=== PATIENT | female | born 1960 | race Caucasian/White ===

== ENCOUNTER 2024-01-22 13:06 | Outpatient (CLI) | payer MEDICAID, SELFPAY ==
[2024-01-22 13:12] LABS: Anion Gap 12.4 mmol/L (3-11); BUN 39 mg/dL (7-18); CO2 23.6 mmol/L (21.0-32.0); CREATININE 2.2 mg/dL (0.55-1.02); Calcium 9.5 mg/dL (8.5-10.1); Chloride 97 mmol/L (98-107); Estimated GFR 24.27 (mL/min/1.73m2); Glucose 343 mg/dL (74-106); Potassium 4.3 mmol/L (3.5-5.1); Sodium 133 mmol/L (136-145)
== END 2024-01-22 13:07 | disposition home or self-care (01) ==
LOC: LBO 13:07
PROVIDERS: PCP Nurse Practitioner Primary Care; Visit Provider Nurse Practitioner
DX: N17.9 Acute kidney failure, unspecified (principal)
CPT/HCPCS: 36415; 80048

== ENCOUNTER 2024-01-25 14:42 | Outpatient (CLI) | payer MEDICAID, SELFPAY ==
[2024-01-25 13:22] LABS: Anion Gap 13.2 mmol/L (3-11); BUN 36 mg/dL (7-18); CO2 25.8 mmol/L (21.0-32.0); Calcium 10.3 mg/dL (8.5-10.1); Chloride 97 mmol/L (98-107); Estimated GFR 27.21 (mL/min/1.73m2); Glucose 281 mg/dL (74-106); Potassium 4.1 mmol/L (3.5-5.1); Sodium 136 mmol/L (136-145)
== END 2024-01-25 14:43 | disposition home or self-care (01) ==
LOC: LBO 14:43
PROVIDERS: PCP Nurse Practitioner Primary Care; Visit Provider Nurse Practitioner
DX: N17.9 Acute kidney failure, unspecified (principal)
CPT/HCPCS: 36415; 80048

== ENCOUNTER 2024-06-06 17:51 | Outpatient (REF) | payer MEDICARE, MEDICAID, SELFPAY ==
[2024-06-06 14:36] LABS: Bilirubin Negative (Negative); Blood Small (Negative); Clarity Sl Cloudy (Clear); Glucose Negative (Negative); Ketones Negative (Negative); Leukocyte Esterase Large (Negative); Nitrite Negative (Negative); Specific Gravity 1.015 (1.005-1.025); Urobilinogen 0.2 mg/dL (Up to 0.2); pH 6.5 (5-8)
[2024-06-06 14:44] LABS: WBC >50 HPF (0-5)
[2024-06-06 14:45] LABS: C & S Indicated? Yes
== END 2024-06-06 17:52 | disposition home or self-care (01) ==
LOC: LBN 17:51
PROVIDERS: PCP Nurse Practitioner Primary Care; Visit Provider Legal Medicine
DX: R30.0 Dysuria (principal)
CPT/HCPCS: 87077; 81003; 81015; 87086; 87186

== ENCOUNTER 2024-09-05 16:08 | Outpatient (CLI) | payer MEDICARE, MEDICAID, SELFPAY ==
[2024-09-05 17:47] LABS: Anion Gap 12.5 mmol/L (3-11); BUN 21 mg/dL (7-18); CO2 23.5 mmol/L (21.0-32.0); CREATININE 1.5 mg/dL (0.55-1.02); Calcium 9.2 mg/dL (8.5-10.1); Chloride 104 mmol/L (98-107); Estimated GFR 38.43 (mL/min/1.73m2); Glucose 167 mg/dL (74-106); Sodium 140 mmol/L (136-145)
== END 2024-09-05 16:09 | disposition home or self-care (01) ==
LOC: LBO 16:09
PROVIDERS: PCP Nurse Practitioner Primary Care; Visit Provider Nurse Practitioner
DX: N17.9 Acute kidney failure, unspecified (principal)
CPT/HCPCS: 36415; 80048

== ENCOUNTER 2025-04-06 15:08 | Outpatient (CLI) | payer MEDICARE, MEDICAID, SELFPAY ==
[2025-04-06 15:09] LABS: Abs Immature Grans 0.02 10^3/uL (0.0-0.06); Absolute Basophil Count 0.03 10^3/uL (0.0-0.2); Absolute Lymphocyte Count 1.31 10^3/uL (1.2-3.4); Absolute Monocyte Count 0.71 10^3/uL (0.1-0.8); Absolute Neutrophil Count 4.92 10^3/uL (1.2-6.7); Basophils % 0.4 %; Eosinophils % 1.4 %; HCT 35.5 % (36.0-46.0); HGB 11.3 g/dL (11.2-15.7); Immature Grans % 0.3 %; Lymphocytes % 18.5 %; MCH 27.2 pg (27.0-33.0); MCHC 31.8 % (32.0-36.0); MCV 85 fL (80-95); MPV 11.3 fL (8.0-11.0); Neutrophils % 69.4 %; Platelet Count 222 10^3/uL (130-400); RBC 4.16 10^6/uL (3.93-5.22); RDW 13.3 % (11.7-14.6); RDW-SD 41.7 fL; WBC 7.09 10^3/uL (4.4-10.8)
[2025-04-06 16:38] LABS: ALT 25 U/L (14-59); AST 20 U/L (15-37); Alkaline Phosphatase 120 U/L (46-116); Anion Gap 8.2 mmol/L (3-11); BUN 21 mg/dL (7-18); Bilirubin, Total 0.2 mg/dL (0.2-1.0); CO2 25.8 mmol/L (21.0-32.0); CREATININE 1.4 mg/dL (0.55-1.02); Calcium 9.6 mg/dL (8.5-10.1); Chloride 101 mmol/L (98-107); Estimated GFR 41.49 (mL/min/1.73m2); Glucose 137 mg/dL (74-106); Sodium 135 mmol/L (136-145); Total Protein 8.1 g/dL (6.4-8.2)
[2025-04-07 14:57] LABS: Hemoglobin A1C 7.5 % (<5.7)
== END 2025-04-06 15:09 | disposition home or self-care (01) ==
LOC: LBO 15:08
PROVIDERS: PCP Nurse Practitioner Primary Care; Visit Provider Legal Medicine
DX: N18.9 Chronic kidney disease, unspecified (principal); E11.8 Type 2 diabetes mellitus with unspecified complications
CPT/HCPCS: 36415; 80053; 81003; 83036; 85025

== ENCOUNTER 2025-04-08 16:57 | Outpatient (REF) | payer MEDICARE, MEDICAID, SELFPAY ==
[2025-04-08 17:51] LABS: Bilirubin Negative (Negative); Blood Small (Negative); Clarity Sl Cloudy (Clear); Glucose Negative (Negative); Ketones Negative (Negative); Leukocyte Esterase Moderate (Negative); Nitrite Positive (Negative); Urobilinogen 0.2 mg/dL (Up to 0.2); pH 6.5 (5-8)
[2025-04-08 17:58] LABS: Bacteria Packed HPF (Negative); C & S Indicated? Yes; WBC >50 HPF (0-5)
== END 2025-04-08 16:58 | disposition home or self-care (01) ==
LOC: LBN 16:57
PROVIDERS: PCP Nurse Practitioner Primary Care; Visit Provider Legal Medicine
DX: N39.0 Urinary tract infection, site not specified (principal)
CPT/HCPCS: 87077; 81003; 81015; 87086; 87186

== ENCOUNTER 2025-04-28 06:29 | Observation (INO) | payer MEDICARE, MEDICAID, SELFPAY ==
[2025-04-28] VITALS (77 sets, daily range): BP systolic 100–193; BP diastolic 60–141; PULSE 83–149; RESP 16–61; TEMP 36.2–37.7; O2SAT 92–98; BMI 21.5
--- NOTE | 2025-04-28 06:36 | W.ED.GENAD ---
Discharge Plan Discharge Details Chief Complaint: Nk/Back Pain Clinical Impression: Acute right flank pain Primary Care Provider: KARON ERAZO ED Provider: Lars Leone Home Meds and New Rx's Prescriptions: No Action aspirin 81 mg tablet,delayed release (DR/EC) 81 mg PO DAILY levothyroxine 100 mcg capsule 100 mcg PO DAILY naproxen 500 mg tablet 500 mg PO BID omeprazole 40 mg capsule,delayed release(DR/EC) 40 mg PO DAILY cyclosporine [Restasis] 0.05 % dropperette 1 drp ophthalmic (eye) Q12H rosuvastatin 40 mg tablet 40 mg PO DAILY sumatriptan succinate 50 mg tablet See Rx Instructions PO .COMPLEX Rx Instructions: take 1 tab at onset of headache; if no relief may repeat 1 tab after at least 2 hrs; max = 4 tabs/24 hr PO Xiidra 5 % dropperette 1 drp ophthalmic (eye) BID Rx Instructions: administer approximately 12 hours apart zolmitriptan 2.5 mg tablet See Rx Instructions PO .COMPLEX Rx Instructions: take 1 tab at onset of headache; if no relief may repeat 1 tab after at least 2 hrs; max = 4 tabs/24 hr PO multivitamin Tablet 1 tab PO DAILY Ozempic 0.25 mg or 0.5 mg (2 mg/3 mL) pen injector 0.25 mg subcut QWEEK Rx Instructions: for 4 weeks levothyroxine 75 mcg capsule 75 mcg PO DAILY Januvia 25 mg tablet 25 mg PO DAILY insulin degludec [Tresiba FlexTouch U-100] 100 unit/mL (3 mL) insulin pen 10 unit subcut DAILY pregabalin 75 mg capsule See Rx Instructions PO DAILY Rx Instructions: 2 tabs q am, 1 tab qhs orally daily; ferrous sulfate [FeroSul] 325 mg (65 mg iron) tablet 325 mg PO DAILY vitamin B complex Capsule 1 cap PO DAILY cholecalciferol (vitamin D3) 25 mcg (1,000 unit) capsule 25 mcg PO DAILY HPI General Date/Time Provider Initiated Documentation: 04/28/25 06:29. HPI Narrative: 64-year-old female who is not normally seen here, with a past medical history of diabetes mellitus, previous C. difficile colitis, previous renal failure with CRRT in the past, hypothyroidism, high cholesterol, who presents today for evaluation of right flank pain. Flank pain began at 4 AM, severe and sharp in nature. Radiates towards the groin. She has noticed some mild to moderate hematuria associated with this. She denies fever. She did have a single episode of vomiting. She denies any chest pain or shortness of breath. No falls or trauma. No other complaints at this time. Pain is unremitting. Related Data Home Medications ?Medication ?Instructions ?Recorded ?Confirmed aspirin 81 mg tablet,delayed 81 mg PO DAILY 01/02/23 release cyclosporine 0.05 % eye drops in a 1 drp ophthalmic (eye) Q12H 01/02/23 dropperette (Restasis) levothyroxine 100 mcg capsule 100 mcg PO DAILY 01/02/23 lifitegrast 5 % eye drops in a 1 drp ophthalmic (eye) BID 01/02/23 dropperette (Xiidra) naproxen 500 mg tablet 500 mg PO BID 01/02/23 omeprazole 40 mg capsule,delayed 40 mg PO DAILY 01/02/23 release rosuvastatin 40 mg tablet 40 mg PO DAILY 01/02/23 sumatriptan succinate 50 mg tablet See Rx Instructions PO .COMPLEX 01/02/23 zolmitriptan 2.5 mg tablet See Rx Instructions PO .COMPLEX 01/02/23 cholecalciferol (vitamin D3) 25 25 mcg PO DAILY 08/18/24 mcg (1,000 unit) capsule ferrous sulfate 325 mg (65 mg 325 mg PO DAILY 08/18/24 iron) tablet (FeroSul) insulin degludec 100 unit/mL (3 10 unit subcut DAILY 08/18/24 mL) subcutaneous pen (Tresiba FlexTouch U-100 insulin) levothyroxine 75 mcg capsule 75 mcg PO DAILY 08/18/24 multivitamin 1 tab PO DAILY 08/18/24 pregabalin 75 mg capsule See Rx Instructions PO DAILY 08/18/24 semaglutide 0.25 mg or 0.5 mg (2 0.25 mg subcut QWEEK 08/18/24 mg/3 mL) subcutaneous pen injector (Ozempic) sitagliptin phosphate 25 mg tablet 25 mg PO DAILY 08/18/24 (Januvia) vitamin B complex 1 cap PO DAILY 08/18/24 Allergies Allergy/AdvReac Type Severity Reaction Status Date / Time acetaminophen (From Percocet) Allergy Unknown Verified 04/28/25 06:40 nystatin Allergy Unknown Verified 04/28/25 06:40 oxycodone (From Percocet) Allergy Unknown Verified 04/28/25 06:40 Sulfa (Sulfonamide Allergy Unknown Verified 04/28/25 06:40 Antibiotics) Exam Narrative Exam Narrative: 1.Const: Well-nourished, Well-developed, appearing stated age 2.Eyes: PERRL, no conjunctival injection, and symmetrical lids. 3.ENT: Atraumatic external nose and ears. Moist MM. Neck: Symmetric, trachea midline, No thyromegaly. 4.CVS: +S1/S2, Peripheral pulses 2+ and equal in all extremities. Brisk capillary refill in all extremities. 5.RESP: Unlabored respiratory effort. Clear to auscultation bilaterally. No wheezes rales or rhonchi 6.GI: Soft, mildly distended, moderate right CVA tenderness. Minimal reproducible tenderness on palpation of the right abdomen. No guarding or rebound. 7.MSK: Normocephalic/Atraumatic, Extremities w/o deformity or ttp No cyanosis or clubbing, Normal movement of all extremities 8.Skin: Warm, Dry. No rashes or lesions. 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 Sensation grossly intact, no focal neurologic deficits. 10.Psych: (AAO) x3. Appropriate mood and affect Medical Decision Making 64-year-old female who is not normally seen here, with a past medical history of diabetes mellitus, previous C. difficile colitis, previous renal failure with CRRT in the past, hypothyroidism, high cholesterol, who presents today for evaluation of right flank pain. Flank pain began at 4 AM, severe and sharp in nature. Radiates towards the groin. She has noticed some mild to moderate hematuria associated with this. She denies fever. She did have a single episode of vomiting. She denies any chest pain or shortness of breath. No falls or trauma. No other complaints at this time. Pain is unremitting. Exam demonstrates right flank/CVA tenderness, mildly distended abdomen. No severe abdominal tenderness on palpation. Differential includes obstruction, kidney stone, pyelonephritis or less likely appendicitis. Will get CT imaging, treat the patient's pain with morphine, gently rehydrate, monitor closely and reassess. Patient will be signed out to my colleague for follow-up on labs and imaging. I did offer morphine for the patient's pain, she refused, she does not want fentanyl or Dilaudid. She only wants pregabalin, or Vicodin. I discussed risks and benefits of utilizing his medications and she refuses any other additional meds. Quality:SDOH Health Related Social Needs: No Data to Display PFSH All Active Problems (Updated 04/28/25 @ 06:49 by Lars Leone DO) Acute right flank pain (Acute) Osteopenia (Acute) Medical History (Updated 04/28/25 @ 06:49 by Lars Leone DO) Hypothyroidism Hypertension Hyperlipidemia Palpitations Tobacco use Hx of chest pain Neuropathy Spinal stenosis of lumbar region Skin lesion Pain in limb History of neck pain Dysuria Anxiety Rupture of appendix Abnormal uterine bleeding Disorder of tendon of biceps Chronic pain syndrome Graves disease Hand paresthesia Intracranial meningioma Myalgia Genital prolapse Pleomorphic adenoma of parotid gland GERD (gastroesophageal reflux disease) Sciatica Abdominal pain in female Neuralgia Hx of visual disturbance Migraine History of depression Alcohol abuse Acute hip pain, bilateral Otalgia of left ear Osteoarthritis 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
[2025-04-28 07:10] LABS: Abs Immature Grans 0.06 10^3/uL (0.0-0.06); Absolute Eosinophil Count 0.06 10^3/uL (0.0-0.7); Basophils % 0.5 %; Eosinophils % 0.4 %; HCT 34.5 % (36.0-46.0); HGB 10.3 g/dL (11.2-15.7); Immature Grans % 0.4 %; Lymphocytes % 7.5 %; MCH 25.8 pg (27.0-33.0); MCHC 29.9 % (32.0-36.0); MCV 86 fL (80-95); MPV 11.3 fL (8.0-11.0); Monocytes % 5.9 %; Neutrophils % 85.3 %; Platelet Count 230 10^3/uL (130-400); RDW 13.3 % (11.7-14.6); RDW-SD 42.2 fL; WBC 15.55 10^3/uL (4.4-10.8)
[2025-04-28 07:11] LABS: Absolute Basophil Count 0.08 10^3/uL (0.0-0.2); Absolute Lymphocyte Count 1.17 10^3/uL (1.2-3.4); Absolute Monocyte Count 0.92 10^3/uL (0.1-0.8); Absolute Neutrophil Count 13.26 10^3/uL (1.2-6.7)
[2025-04-28] MEDS: Normal Saline 500 ML IV (07:21)
[2025-04-28 07:25] LABS: ALT 28 U/L (14-59); AST 18 U/L (15-37); Albumin 3.7 g/dL (3.4-5.0); Alkaline Phosphatase 101 U/L (46-116); Anion Gap 10.6 mmol/L (3-11); BUN 20 mg/dL (7-18); Bilirubin, Total 0.2 mg/dL (0.2-1.0); CO2 25.4 mmol/L (21.0-32.0); CREATININE 1.4 mg/dL (0.55-1.02); Calcium 8.8 mg/dL (8.5-10.1); Chloride 106 mmol/L (98-107); Estimated GFR 41.49 (mL/min/1.73m2); Glucose 221 mg/dL (74-106); Sodium 142 mmol/L (136-145); Total Protein 7.3 g/dL (6.4-8.2)
[2025-04-28] MEDS: Pregabalin 100 MG CAP PO (07:48)
--- NOTE | 2025-04-28 07:55 | ED.PROG_ITS ---
Date of service: 04/28/25 Time of Service: 07:55 Medical Decision Making Care assumed from off going provider. Patient is a 64-year-old female that presented with acute onset flank pain and hematuria. The patient has a prior history of renal disease and was previously on CRRT without dialysis. She is no longer on this. Workup thus far has been reviewed. Elevated white blood cell count of 15 noted. Mild anemia appreciated. Renal function at 1.4 which does seem to be consistent with prior noted values. Mild hyperglycemia without evidence of DKA. Unclear etiology of the leukocytosis. At the time of signout, patient is pending urinalysis and CT scan of her abdomen for further disposition planning. CT scan has not been able to be obtained secondary to the patient's unwillingness to lay still for the imaging. She has been offered multiple rounds of medication however she refuses them. She is now endorsing some nausea. A dose of droperidol has been ordered. CT imaging has been discussed with radiologist and there is concern for right hydronephrosis and hydroureter. There is a 4 mm stone just proximal to the UVJ. The patient also has an infected urinalysis. Culture has been sent. Blood culture has been sent. She has been resuscitated with some IV fluids and a dose of Rocephin has been given. Given her leukocytosis in addition to these current findings, the patient was discussed with urology who does feel that she would benefit from stenting. Anesthesia has evaluated her and find that she is not appropriate candidate for surgical management here. Discussed with the hospitalist to admit the patient to their service. Quality:SDW[place] Health Related Social Needs: No Data to Display Discharge Plan Disposition Patient Disposition: Admit to [facility] Condition: Fair Discharge Details Chief Complaint: Nk/Back Pain Clinical Impression: Acute right flank pain, Leukocytosis, Calculus, ureteral, Acute UTI, Acute pyelonephritis Primary Care Provider: Nellie Lorenzo ED Provider: Kristen Ralph Home Meds and New Rx's Prescriptions: No Action aspirin 81 mg tablet,delayed release (DR/EC) 81 mg PO DAILY levothyroxine 100 mcg capsule 100 mcg PO DAILY naproxen 500 mg tablet 500 mg PO BID omeprazole 40 mg capsule,delayed release(DR/EC) 40 mg PO DAILY cyclosporine [Restasis] 0.05 % dropperette 1 drp ophthalmic (eye) Q12H rosuvastatin 40 mg tablet 40 mg PO DAILY sumatriptan succinate 50 mg tablet See Rx Instructions PO .COMPLEX Rx Instructions: take 1 tab at onset of headache; if no relief may repeat 1 tab after at least 2 hrs; max = 4 tabs/24 hr PO Xiidra 5 % dropperette 1 drp ophthalmic (eye) BID Rx Instructions: administer approximately 12 hours apart zolmitriptan 2.5 mg tablet See Rx Instructions PO .COMPLEX Rx Instructions: take 1 tab at onset of headache; if no relief may repeat 1 tab after at least 2 hrs; max = 4 tabs/24 hr PO multivitamin Tablet 1 tab PO DAILY Ozempic 0.25 mg or 0.5 mg (2 mg/3 mL) pen injector 0.25 mg subcut QWEEK Rx Instructions: for 4 weeks levothyroxine 75 mcg capsule 75 mcg PO DAILY Januvia 25 mg tablet 25 mg PO DAILY insulin degludec [Tresiba FlexTouch U-100] 100 unit/mL (3 mL) insulin pen 10 unit subcut DAILY pregabalin 75 mg capsule See Rx Instructions PO DAILY Rx Instructions: 2 tabs q am, 1 tab qhs orally daily; ferrous sulfate [FeroSul] 325 mg (65 mg iron) tablet 325 mg PO DAILY vitamin B complex Capsule 1 cap PO DAILY cholecalciferol (vitamin D3) 25 mcg (1,000 unit) capsule 25 mcg PO DAILY cephalexin 250 mg capsule 250 mg PO DAILY Patient Comments: Take 1 capsue by mouth Daily for 90 days ( start after three times a day cephalexin script is complete )
[2025-04-28] MEDS: Droperidol 5 MG/2 ML VIAL 2.5 MG IVP (07:59)
[2025-04-28] MEDS: Normal Saline 50 ML (08:02)
--- NOTE | 2025-04-28 08:30 | DI.CT_ITS ---
Exam(s) CT ABDOMEN PELVIS WO EXAM: CT ABDOMEN PELVIS WO CLINICAL HISTORY: severe right flank pain, hx of renal failure. TECHNIQUE: Imaging Protocol: Axial computed tomography images with coronal and sagittal reformatted images were created and reviewed CONTRAST MATERIAL: Intravenous: none Oral: None COMPARISON: No exams were available for comparison FINDINGS: VISUALIZED LUNG BASES: No nodules nor pleural effusions evident. ABDOMEN: There is no ascites. LIVER: There are no obvious focal hepatic lesions evident of this noninfused study. GALLBLADDER/BILIARY: No obvious gallbladder pathology. CBD is not dilated. PANCREAS: No evidence of pancreatic mass nor dilatation of the pancreatic duct. SPLEEN: Spleen is not enlarged. No obvious intrasplenic lesions. ADRENALS: There are no significant adrenal masses. KIDNEYS:Left kidney unremarkable. However, there is right-sided hydronephrosis and hydroureter and p rominent right-sided perinephric streaking/decompression into the perinephric space. The right urete r is dilated down to the level of the pelvis. There appears to be a small 3-4 mm calculus in the low er right ureter a few cm above the ureterovesical junction. There are no radiopaque calculi seen in the urinary bladder.. ABDOMINAL AORTA: Calcified but not enlarged. LYMPH NODES: There is no retroperitoneal nor paraaortic adenopathy. ABDOMINAL WALL: No evidence of significant anterior abdominal wall nor inguinal hernia. GI: There is no evidence of bowel obstruction, free air, nor abscess. PELVIS: LYMPH NODES: There is no intrapelvic nor inguinal adenopathy. GI: No evidence of appendicitis.No evidence of sigmoid diverticulitis. URINARY BLADDER: Cystocele is noted. No obvious masses nor radiopaque calculi in the urinary bladder lumen REPRODUCTIVE: Multiple large calcified uterine fibroids are noted. No free fluid in the pelvis. OSSEOUS: No significant osseous lesions. No fractures. Advanced chronic degenerative disc space narrowing at L4-5 level and mild anterolisthe sis of L4 upon L5 due to facet arthropathy. There are no pars defects. IMPRESSION: 1. The main finding here is right-sided hydronephrosis and hydroureter which appears to be related to a probable small calculus in the lower right ureter measuring 4 mm. There is also the possibly that this calcification is just a phlebolith and that there is another etiology for the obstruction in th e ureter and dilatation of the right collecting system above this level as well as unilateral right-s ided perinephric streaking. 2. There are no radiopaque calculi seen with in the kidneys. 3. No radiopaque calculi seen within the urinary bladder lumen. Mild cystocele of bladder noted 4. Multiple large calcified uterine fibroids. Report called by myself to ER physician 04/28/2025 at 9 a.m. RADIATION DOSE DELIVERED: 451.21mGy.cm Total DLP DATA REPOSITORY: All CT scans at this facility are submitted to the National Radiology Data Registry (NRDR) Dose Index Registry (DIR) with the [employer] (ACR). RADIATION OPTIMIZATION: All CT scans at this facility use at least one of these dose optimization te chniques: automated exposure control; mA and/or kV adjustment per patient size (includes targeted exa ms where dose is matched to clinical indication); or iterative reconstruction.
[2025-04-28 10:14] LABS: Bilirubin Negative (Negative); Blood Large (Negative); Clarity Clear (Clear); Glucose Negative (Negative); Ketones Negative (Negative); Leukocyte Esterase Large (Negative); Nitrite Negative (Negative); Specific Gravity 1.015 (1.005-1.025); Urobilinogen 0.2 mg/dL (Up to 0.2)
[2025-04-28] MEDS: Normal Saline 1,000 ML 1000 ML IV (10:20)
[2025-04-28] MEDS: cefTRIAXone 1 GM/50 ML BAG IVPB (10:20)
[2025-04-28 10:23] LABS: Bacteria Many HPF (Negative); C & S Indicated? Yes; Casts 0-2 Hyaline LPF (Negative); Crystals Negative HPF (Negative); Epithelial Cells Rare HPF (Negative); Mucus Negative (Negative); Other Cells Few Renal (Negative); RBC 20-50 HPF (0-2); WBC >50 HPF (0-5)
[2025-04-28 11:09] LABS: Lactate 2.2 mmol/L (<or=2.0)
--- NOTE | 2025-04-28 12:23 | ANES.PREOP_ITS ---
General Info Date of Service Date Performed: 04/28/25 Height: 4 ft 10 in Weight: 46.72 kg Body Mass Index (BMI): 21.5 Surgical Procedure: Operation Date: 04/28/25 12:40 Proposed Procedure Side Surgeon p Cystoscopy/Retrograde/ Stent Placement Right Sergo Duron MD Meds Allergies and Home Medications Allergies Allergy/AdvReac Type Severity Reaction Status Date / Time acetaminophen (From Percocet) Allergy Unknown Verified 04/28/25 06:40 nystatin Allergy Unknown Verified 04/28/25 06:40 oxycodone (From Percocet) Allergy Unknown Verified 04/28/25 06:40 Sulfa (Sulfonamide Allergy Unknown Verified 04/28/25 06:40 Antibiotics) Home Medication ?Medication ?Instructions ?Recorded aspirin 81 mg tablet,delayed 81 mg PO DAILY 01/02/23 release cyclosporine 0.05 % eye drops in a 1 drp ophthalmic (eye) Q12H 01/02/23 dropperette (Restasis) levothyroxine 100 mcg capsule 100 mcg PO DAILY 01/02/23 lifitegrast 5 % eye drops in a 1 drp ophthalmic (eye) BID 01/02/23 dropperette (Xiidra) naproxen 500 mg tablet 500 mg PO BID 01/02/23 omeprazole 40 mg capsule,delayed 40 mg PO DAILY 01/02/23 release rosuvastatin 40 mg tablet 40 mg PO DAILY 01/02/23 sumatriptan succinate 50 mg tablet See Rx Instructions PO .COMPLEX 01/02/23 zolmitriptan 2.5 mg tablet See Rx Instructions PO .COMPLEX 01/02/23 cholecalciferol (vitamin D3) 25 25 mcg PO DAILY 08/18/24 mcg (1,000 unit) capsule ferrous sulfate 325 mg (65 mg 325 mg PO DAILY 08/18/24 iron) tablet (FeroSul) insulin degludec 100 unit/mL (3 10 unit subcut DAILY 08/18/24 mL) subcutaneous pen (Tresiba FlexTouch U-100 insulin) levothyroxine 75 mcg capsule 75 mcg PO DAILY 08/18/24 multivitamin 1 tab PO DAILY 08/18/24 pregabalin 75 mg capsule See Rx Instructions PO DAILY 08/18/24 semaglutide 0.25 mg or 0.5 mg (2 0.25 mg subcut QWEEK 08/18/24 mg/3 mL) subcutaneous pen injector (OzempMembersuite) sitagliptin phosphate 25 mg tablet 25 mg PO DAILY 08/18/24 (Januvia) vitamin B complex 1 cap PO DAILY 08/18/24 cephalexin 250 mg capsule 250 mg PO DAILY 04/28/25 PFS Active Problems Active Problems: Problem Status Onset Code Acute pyelonephritis Acute N10 Acute UTI Acute N39.0 Calculus, ureteral Acute N20.1 Leukocytosis Acute D72.829 Acute right flank pain Acute R10.9 Osteopenia Acute M85.80 Medical History Medical History (Updated 04/28/25 @ 11:07 by Kristen Ralph MD) Hypothyroidism Hypertension Hyperlipidemia Palpitations Tobacco use Hx of chest pain Neuropathy Spinal stenosis of lumbar region Skin lesion Pain in limb History of neck pain Dysuria Anxiety Rupture of appendix Abnormal uterine bleeding Disorder of tendon of biceps Chronic pain syndrome Graves disease Hand paresthesia Intracranial meningioma Myalgia Genital prolapse Pleomorphic adenoma of parotid gland GERD (gastroesophageal reflux disease) Sciatica Abdominal pain in female Neuralgia Hx of visual disturbance Migraine History of depression Alcohol abuse Acute hip pain, bilateral Otalgia of left ear Osteoarthritis 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 Type 2 diabetes mellitus Tobacco Smoking/Tobacco Use Status: Current every day Alcohol Alcohol Intake: former Substance Use Substance use: Never Vital Signs and Lab Results Vital Signs Most Recent Vital Signs in EMR: Most Recent Vital Signs Pulse Resp BP Pulse Ox 110 H 30 H 170/86 H 94 04/28/25 09:50 04/28/25 10:00 04/28/25 09:46 04/28/25 09:50 Lab Results 04/28/25 07:05 04/28/25 07:05 Blood Type / Crossmatch: 2 No Data to Display Complete Blood Count: 2 White Blood Count 15.55 10^3/uL (4.4-10.8) H 04/28/25 07:05 Red Blood Count 4.00 10^6/uL (3.93-5.22) 04/28/25 07:05 Hemoglobin 10.3 g/dL (11.2-15.7) L 04/28/25 07:05 Hematocrit 34.5 % (36.0-46.0) L 04/28/25 07:05 Platelet Count 230 10^3/uL (130-400) 04/28/25 07:05 Venous Blood Lactate 2.2 mmol/L (<or=2.0) H* 04/28/25 11:00 Complete Metabolic Panel: 2 Sodium 142 mmol/L (136-145) 04/28/25 07:05 Potassium 4.0 mmol/L (3.5-5.1) 04/28/25 07:05 Chloride 106 mmol/L (98-107) 04/28/25 07:05 Carbon Dioxide 25.4 mmol/L (21.0-32.0) 04/28/25 07:05 BUN 20 mg/dL (7-18) H 04/28/25 07:05 Creatinine 1.4 mg/dL (0.55-1.02) H 04/28/25 07:05 Est GFR (CKD-EPI 2020) 41.49 (mL/min/1.73m2) 04/28/25 07:05 Calcium 8.8 mg/dL (8.5-10.1) 04/28/25 07:05 Albumin 3.7 g/dL (3.4-5.0) 04/28/25 07:05 Glucose 221 mg/dL (74-106) H 04/28/25 07:05 Hemoglobin A1c 7.5 % (<5.7) H 04/06/25 15:00 Liver Function Panel: 2 Alanine Aminotransferase (ALT/SGPT) 28 U/L (14-59) 04/28/25 07: 05 Aspartate Amino Transf (AST/SGOT) 18 U/L (15-37) 04/28/25 07:05 Coagulation Panel: 2 No Data to Display Cardiac Panel: 2 No Data to Display Arterial Blood Gas: 2 No Data to Display Venous Blood Gas: 2 No Data to Display Pancreas Panel: 2 No Data to Display Thyroid Panel: 2 No Data to Display Infectious Disease: 2 No Data to Display Blood Cultures: 2 No Data to Display Toxicology Panel: 2 No Data to Display Anesthesia Assessment and Plan Anesthesia History Personal History: No History of Anesthesia Complications Family History: No Family History of Anesthesia Complications Exercise Tolerance Exercise Tolerance: Metabolic Equivalents>4 Pertinent Negatives Pertinent Negatives: No Symptoms of GERD, No Major Cardiovascular Symptoms or Complaints, No Major Pulmonary Symptoms or Complaints and No History of CVA/TIA Cardiac & Pulmonary Exam Cardiac Exam: Normal S1/S2 Heart Sounds Pulmonary Exam: Clear Bilateral Breath Sounds Implantable Cardiac Device Does patient have a Pacemaker or an ICD?: No Airway Exam Known Difficult Airway: No Mallampati Class: 2 Mouth Opening: Normal (> 3cm) Thyromental Distance: Less than 3 cm Neck Range of Motion: Full ROM Neck Circumference: Normal Teeth Condition: Removable Dentures/Plates Upper ASA Classification ASA Score: ASA 3 Emergency Case?: Yes NPO Status NPO Status: NPO Clears >2 hours, Solids >8 hours Anesthesia Plan Resuscitation Status: Full Code Anesthesia Technique: General Anesthesia Airway Planned: Endotracheal Tube Monitors Used: Standard Monitors Preoperative Comments:: Ozempic dose adjusted 2 weeks ago and last dose yesterday.
--- NOTE | 2025-04-28 12:40 | ANES.PREOP_ITS ---
General Info Date of Service Date Performed: 04/28/25 Height: 4 ft 10 in Weight: 46.72 kg Body Mass Index (BMI): 21.5 Surgical Procedure: Operation Date: 04/28/25 12:40 Proposed Procedure Side Surgeon p Cystoscopy/Retrograde/ Stent Placement Right Sergo Duron MD Meds Allergies and Home Medications Allergies Allergy/AdvReac Type Severity Reaction Status Date / Time acetaminophen (From Percocet) Allergy Unknown Verified 04/28/25 06:40 nystatin Allergy Unknown Verified 04/28/25 06:40 oxycodone (From Percocet) Allergy Unknown Verified 04/28/25 06:40 Sulfa (Sulfonamide Allergy Unknown Verified 04/28/25 06:40 Antibiotics) Home Medication ?Medication ?Instructions ?Recorded aspirin 81 mg tablet,delayed 81 mg PO DAILY 01/02/23 release cyclosporine 0.05 % eye drops in a 1 drp ophthalmic (eye) Q12H 01/02/23 dropperette (Restasis) levothyroxine 100 mcg capsule 100 mcg PO DAILY 01/02/23 lifitegrast 5 % eye drops in a 1 drp ophthalmic (eye) BID 01/02/23 dropperette (Xiidra) naproxen 500 mg tablet 500 mg PO BID 01/02/23 omeprazole 40 mg capsule,delayed 40 mg PO DAILY 01/02/23 release rosuvastatin 40 mg tablet 40 mg PO DAILY 01/02/23 sumatriptan succinate 50 mg tablet See Rx Instructions PO .COMPLEX 01/02/23 zolmitriptan 2.5 mg tablet See Rx Instructions PO .COMPLEX 01/02/23 cholecalciferol (vitamin D3) 25 25 mcg PO DAILY 08/18/24 mcg (1,000 unit) capsule ferrous sulfate 325 mg (65 mg 325 mg PO DAILY 08/18/24 iron) tablet (FeroSul) insulin degludec 100 unit/mL (3 10 unit subcut DAILY 08/18/24 mL) subcutaneous pen (Tresiba FlexTouch U-100 insulin) levothyroxine 75 mcg capsule 75 mcg PO DAILY 08/18/24 multivitamin 1 tab PO DAILY 08/18/24 pregabalin 75 mg capsule See Rx Instructions PO DAILY 08/18/24 semaglutide 0.25 mg or 0.5 mg (2 0.25 mg subcut QWEEK 08/18/24 mg/3 mL) subcutaneous pen injector (OzempEversight) sitagliptin phosphate 25 mg tablet 25 mg PO DAILY 08/18/24 (Januvia) vitamin B complex 1 cap PO DAILY 08/18/24 cephalexin 250 mg capsule 250 mg PO DAILY 04/28/25 PFS Active Problems Active Problems: Problem Status Onset Code Acute pyelonephritis Acute N10 Acute UTI Acute N39.0 Calculus, ureteral Acute N20.1 Leukocytosis Acute D72.829 Acute right flank pain Acute R10.9 Osteopenia Acute M85.80 Medical History Medical History (Updated 04/28/25 @ 11:07 by Kristen Ralph MD) Hypothyroidism Hypertension Hyperlipidemia Palpitations Tobacco use Hx of chest pain Neuropathy Spinal stenosis of lumbar region Skin lesion Pain in limb History of neck pain Dysuria Anxiety Rupture of appendix Abnormal uterine bleeding Disorder of tendon of biceps Chronic pain syndrome Graves disease Hand paresthesia Intracranial meningioma Myalgia Genital prolapse Pleomorphic adenoma of parotid gland GERD (gastroesophageal reflux disease) Sciatica Abdominal pain in female Neuralgia Hx of visual disturbance Migraine History of depression Alcohol abuse Acute hip pain, bilateral Otalgia of left ear Osteoarthritis 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 Type 2 diabetes mellitus Tobacco Smoking/Tobacco Use Status: Current every day Alcohol Alcohol Intake: former Substance Use Substance use: Never Vital Signs and Lab Results Vital Signs Most Recent Vital Signs in EMR: Most Recent Vital Signs Pulse Resp BP Pulse Ox 110 H 30 H 170/86 H 94 04/28/25 09:50 04/28/25 10:00 04/28/25 09:46 04/28/25 09:50 Lab Results 04/28/25 07:05 04/28/25 07:05 Blood Type / Crossmatch: 2 No Data to Display Complete Blood Count: 2 White Blood Count 15.55 10^3/uL (4.4-10.8) H 04/28/25 07:05 Red Blood Count 4.00 10^6/uL (3.93-5.22) 04/28/25 07:05 Hemoglobin 10.3 g/dL (11.2-15.7) L 04/28/25 07:05 Hematocrit 34.5 % (36.0-46.0) L 04/28/25 07:05 Platelet Count 230 10^3/uL (130-400) 04/28/25 07:05 Venous Blood Lactate 2.2 mmol/L (<or=2.0) H* 04/28/25 11:00 Complete Metabolic Panel: 2 Sodium 142 mmol/L (136-145) 04/28/25 07:05 Potassium 4.0 mmol/L (3.5-5.1) 04/28/25 07:05 Chloride 106 mmol/L (98-107) 04/28/25 07:05 Carbon Dioxide 25.4 mmol/L (21.0-32.0) 04/28/25 07:05 BUN 20 mg/dL (7-18) H 04/28/25 07:05 Creatinine 1.4 mg/dL (0.55-1.02) H 04/28/25 07:05 Est GFR (CKD-EPI 2020) 41.49 (mL/min/1.73m2) 04/28/25 07:05 Calcium 8.8 mg/dL (8.5-10.1) 04/28/25 07:05 Albumin 3.7 g/dL (3.4-5.0) 04/28/25 07:05 Glucose 221 mg/dL (74-106) H 04/28/25 07:05 Hemoglobin A1c 7.5 % (<5.7) H 04/06/25 15:00 Liver Function Panel: 2 Alanine Aminotransferase (ALT/SGPT) 28 U/L (14-59) 04/28/25 07: 05 Aspartate Amino Transf (AST/SGOT) 18 U/L (15-37) 04/28/25 07:05 Coagulation Panel: 2 No Data to Display Cardiac Panel: 2 No Data to Display Arterial Blood Gas: 2 No Data to Display Venous Blood Gas: 2 No Data to Display Pancreas Panel: 2 No Data to Display Thyroid Panel: 2 No Data to Display Infectious Disease: 2 No Data to Display Blood Cultures: 2 No Data to Display Toxicology Panel: 2 No Data to Display Anesthesia Assessment and Plan Anesthesia History Personal History: No History of Anesthesia Complications Family History: No Family History of Anesthesia Complications Exercise Tolerance Exercise Tolerance: Metabolic Equivalents>4 Cardiac & Pulmonary Exam Cardiac Exam: Normal S1/S2 Heart Sounds Pulmonary Exam: Clear Bilateral Breath Sounds Implantable Cardiac Device Does patient have a Pacemaker or an ICD?: No Airway Exam Known Difficult Airway: No Mallampati Class: 2 Mouth Opening: Normal (> 3cm) Thyromental Distance: Less than 3 cm Neck Range of Motion: Full ROM Neck Circumference: Normal Teeth Condition: Removable Dentures/Plates Upper ASA Classification ASA Score: ASA 2 Emergency Case?: Yes NPO Status NPO Status: Full Stomach Anesthesia Plan Resuscitation Status: Full Code Anesthesia Technique: General Anesthesia Airway Planned: Endotracheal Tube Monitors Used: Standard Monitors
--- NOTE | 2025-04-28 12:57 | UCONE_ITS ---
Date of service: 04/28/25 Time of Service: 12:57 Assessment and Plan Assessment and plan (1) Acute UTI: Status: Acute (2) Calculus, ureteral: Status: Acute Assessment and plan: With concerns for urinary tract infection in the face of a ureteral obstruction, we are recommending an urgent ureteral stent placement. We will not make any attempts to remove her stone today. She will need to complete her antibiotics before we would consider bringing her back to the operating room (can be done as an outpatient) to remove her stent and do ureteroscopy with stone extraction. History of Present Illness History of Present Illness Chief Complaint: Right ureteral stone Narrative: This is a 64-year-old woman who has no known prior history of urolithiasis. She has had persistent bacteriuria however. She presented to our emergency department this morning with right sided abdominal and flank pain. She does have some chronic pain in the same region, but this morning's events marked and escalation of her symptoms. She has had some blood in the urine. She has had nausea and vomiting. On evaluation, she was found to have leukocytosis and pyuria. The CT scan shows a right hydronephrosis with a right distal ureteral stone. She has been tachycardic but not hypotensive. Review of Systems Narrative: No fevers or chills No vision change or dysphasia Diabetes. Hypothyroidism No shortness of breath, cough or hemoptysis No chest pain or palpitations Pelvic prolapse. No hepatitis, ulcers, jaundice No seizures, strokes or peripheral neuropathy No bleeding disorders or anemia No gout or arthralgia PFSH All Active Problems (Updated 04/28/25 @ 11:07 by Kristen Ralph MD) Acute pyelonephritis (Acute) Acute UTI (Acute) Calculus, ureteral (Acute) Leukocytosis (Acute) Acute right flank pain (Acute) Osteopenia (Acute) Medical History (Updated 04/28/25 @ 11:07 by Kristen Ralph MD) Hypothyroidism Hypertension Hyperlipidemia Palpitations Tobacco use Hx of chest pain Neuropathy Spinal stenosis of lumbar region Skin lesion Pain in limb History of neck pain Dysuria Anxiety Rupture of appendix Abnormal uterine bleeding Disorder of tendon of biceps Chronic pain syndrome Graves disease Hand paresthesia Intracranial meningioma Myalgia Genital prolapse Pleomorphic adenoma of parotid gland GERD (gastroesophageal reflux disease) Sciatica Abdominal pain in female Neuralgia Hx of visual disturbance Migraine History of depression Alcohol abuse Acute hip pain, bilateral Otalgia of left ear Osteoarthritis 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 Type 2 diabetes mellitus Family History (Updated 01/02/23 @ 11:00 by Anna Gaviria) Brother Alcohol use disorder Mother Arthritis Myocardial infarction Father Diabetes Hypertension Hypercholesterolemia Cerebrovascular disease Heart disease Sister Diabetes Social History (Updated 01/02/23 @ 11:01 by Anna Gaviria) Smoking/Tobacco Use Status: Current every day Smoking risk assessment performed?: Yes Alcohol Intake: former Drug use: Never Exam Narrative Exam Narrative: She appears chronically ill Her vital signs are documented elsewhere She has difficulty keeping her eyes open Her chest wall motion is normal. Her respirations show decreased breath sounds at the bases Cardiac exam shows tachycardia with no arrhythmias Her abdomen is soft with no peritoneal signs She is awake and alert In reviewing her lab work, her white blood count is elevated with a left shift. Her lactate is increased. Her urinalysis is concerning for infection In reviewing her CT scan, she has a right distal ureteral stone with hydroureter and hydronephrosis above the level of the stone Results Last Vital Signs Pulse 110 H 04/28/25 09:50 Resp 30 H 04/28/25 10:00 BP 170/86 H 04/28/25 09:46 Pulse Ox 94 04/28/25 09:50 Labs 04/28/25 07:05 04/28/25 07:05 Labs: Laboratory Results - last 24 hr 04/28/25 04/28/25 04/28/25 07:05 10:01 11:00 WBC 15.55 H RBC 4.00 Hgb 10.3 L Hct 34.5 L MCV 86 MCH 25.8 L MCHC 29.9 L RDW 13.3 Plt Count 230 MPV 11.3 H Immature Gran % 0.4 Neutrophils % 85.3 Lymphocytes % 7.5 Monocytes % 5.9 Eosinophils % 0.4 Basophils % 0.5 Nucleated RBC % 0.0 Absolute Neutrophils 13.26 H Absolute Lymphocytes 1.17 L Absolute Monocytes 0.92 H Absolute Eosinophils 0.06 Absolute Basophils 0.08 VBG Lactate 2.2 H* Sodium 142 Potassium 4.0 Chloride 106 Carbon Dioxide 25.4 Anion Gap 10.6 BUN 20 H Creatinine 1.4 H Est GFR (CKD-EPI 2020) 41.49 Glucose 221 H Calcium 8.8 Total Bilirubin 0.2 AST 18 ALT 28 Alkaline Phosphatase 101 Total Protein 7.3 Albumin 3.7 Urine Color Yellow Urine Clarity Clear Urine pH 6.0 Ur Specific [place] 1.015 Urine Protein 30 H Urine Ketones Negative Urine Blood Large H Urine Nitrite Negative Urine Bilirubin Negative Urine Urobilinogen 0.2 Ur Leukocyte Esterase Large H Urine RBC 20-50 H Urine WBC >50 H Ur Epithelial Cells Rare Urine Crystals Negative Urine Bacteria Many Urine Casts 0-2 Hyaline Urine Mucus Negative Urine Other Few Renal Ur Culture Indicated? Yes Urine Glucose Negative
[2025-04-28] MEDS: Lactated Ringers 1,000 ML 75 ML IV (13:16)
--- NOTE | 2025-04-28 13:21 | W.PC.ACHO ---
Registration Status: Primary Language: Preferred Language: ED Information & Data Chief Complaint Nk/Back Pain 04/28/25 07:08 Chief Complaint Nk/Back Pain 04/28/25 06:38 Triage Note right sided lower back pain, 04/28/25 06:38 hx of kidney diseases. Pt states having hematuria with clots Medical / Surgical History (Last Updated 01/02/23 @ 10:57 by Anna Gaviria) Hypothyroidism Hypertension Hyperlipidemia Palpitations Tobacco use Hx of chest pain Neuropathy Spinal stenosis of lumbar region Skin lesion Pain in limb History of neck pain Dysuria Anxiety Rupture of appendix Abnormal uterine bleeding Disorder of tendon of biceps Chronic pain syndrome Graves disease Hand paresthesia Intracranial meningioma Myalgia Genital prolapse Pleomorphic adenoma of parotid gland GERD (gastroesophageal reflux disease) Sciatica Abdominal pain in female Neuralgia Hx of visual disturbance Migraine History of depression Alcohol abuse Acute hip pain, bilateral Otalgia of left ear Osteoarthritis Other assisted (current) drug therapy Type 2 diabetes mellitus Most Recent Vital Signs Pulse 120 H 04/28/25 13:16 Pulse 119 H 04/28/25 13:01 Respiratory Rate 34 H 04/28/25 13:16 Blood Pressure 156/101 H 04/28/25 13:16 Blood Pressure Mean 111 04/28/25 13:01 Blood Pressure Position Sitting 04/28/25 06:38 Pulse Oximetry 96 04/28/25 13:16 Oxygen Delivery Method Room Air 04/28/25 06:38 Oxygen Flow Rate 0 04/28/25 06:38 Allergies acetaminophen (From Percocet) Allergy (Verified 04/28/25 06:40) Unknown nystatin Allergy (Verified 04/28/25 06:40) Unknown oxycodone (From Percocet) Allergy (Verified 04/28/25 06:40) Unknown Sulfa (Sulfonamide Antibiotics) Allergy (Verified 04/28/25 06:40) Unknown Precautions Isolation Standard precaution 04/28/25 07:08 IV IV Catheter Type [Right Wrist] Saline Lock IV Catheter Gauge [Right Wrist 20 ] Diet Orders Category Date Time Status Nothing Per Oral [DIET] Nutrition 04/28/25 Lunch Active Diagnostics 04/28/25 04/28/25 04/28/25 Range/Units 11:00 10:01 07:05 WBC 15.55 H (4.4-10.8) 10^3/uL RBC 4.00 (3.93-5.22) 10^6/uL Hgb 10.3 L (11.2-15.7) g/dL Hct 34.5 L (36.0-46.0) % MCV 86 (80-95) fL MCH 25.8 L (27.0-33.0) pg MCHC 29.9 L (32.0-36.0) % RDW 13.3 (11.7-14.6) % Plt Count 230 (130-400) 10^3/uL MPV 11.3 H (8.0-11.0) fL Immature Gran % 0.4 % Neutrophils % 85.3 % Lymphocytes % 7.5 % Monocytes % 5.9 % Eosinophils % 0.4 % Basophils % 0.5 % Nucleated RBC % 0.0 (0.0-0.3) % Absolute Neutrophils 13.26 H (1.2-6.7) 10^3/uL Absolute Lymphocytes 1.17 L (1.2-3.4) 10^3/uL Absolute Monocytes 0.92 H (0.1-0.8) 10^3/uL Absolute Eosinophils 0.06 (0.0-0.7) 10^3/uL Absolute Basophils 0.08 (0.0-0.2) 10^3/uL VBG Lactate 2.2 H* (<or=2.0) mmol/L Sodium 142 (136-145) mmol/L Potassium 4.0 (3.5-5.1) mmol/L Chloride 106 (98-107) mmol/L Carbon Dioxide 25.4 (21.0-32.0) mmol/L Anion Gap 10.6 (3-11) mmol/L BUN 20 H (7-18) mg/dL Creatinine 1.4 H (0.55-1.02) mg/dL Est GFR (CKD-EPI 2020) 41.49 (mL/min/1.73m2) Glucose 221 H (74-106) mg/dL Calcium 8.8 (8.5-10.1) mg/dL Total Bilirubin 0.2 (0.2-1.0) mg/dL AST 18 (15-37) U/L ALT 28 (14-59) U/L Alkaline Phosphatase 101 (46-116) U/L Total Protein 7.3 (6.4-8.2) g/dL Albumin 3.7 (3.4-5.0) g/dL Urine Color Yellow (Yellow) Urine Clarity Clear (Clear) Urine pH 6.0 (5-8) Ur Specific [place] 1.015 (1.005-1.025) Urine Protein 30 H (Neg-Trace) mg/dL Urine Ketones Negative (Negative) mg/dL Urine Blood Large H (Negative) Urine Nitrite Negative (Negative) Urine Bilirubin Negative (Negative) Urine Urobilinogen 0.2 (Up to 0.2) mg/dL Ur Leukocyte Esterase Large H (Negative) Urine RBC 20-50 H (0-2) HPF Urine WBC >50 H (0-5) HPF Ur Epithelial Cells Rare (Negative) HPF Urine Crystals Negative (Negative) HPF Urine Bacteria Many (Negative) HPF Urine Casts 0-2 Hyaline (Negative) LPF Urine Mucus Negative (Negative) Urine Other Few Renal (Negative) Ur Culture Indicated? Yes Urine Glucose Negative (Negative) mg/dL 04/28/25 10:55 Blood Culture - Pending Blood 04/28/25 11:00 Blood Culture - Pending Blood 04/28/25 10:01 Urine Culture - Pending Urine - Reflex from Ua Intake and Output - 24 Hour Total 04/28/25 06:23 thru 04/28/25 12:44 Intake Total 1550 Balance 1550 Weight 46.72 kg Intake: IV 1550 Falls Risk Assessment History of Falls No History 04/28/25 07:11 Contributing Factors No Factors 04/28/25 07:11 Ambulatory Aids Independent 04/28/25 07:11 Tubes/Lines None 04/28/25 07:11 Gait Evaluation No gait disturbance 04/28/25 07:11 Cognition No cognitive impairment 04/28/25 07:11 Fall Total Score 0 04/28/25 07:11 Level of Risk Standard/Low Risk 04/28/25 07:11 Problems (Last Updated 01/02/23 @ 10:57 by Anna Gaviria) Acute UTI (Acute) Calculus, ureteral (Acute) v v v v v v v v v Sending and/or Receiving Nurses: Please use comment section below to note any information pertinent to the patient hand-off not included above. Information / Comments: AOx4, VSS, c/o severe pain in flank L>R. Transfered to OR for ureteral stent placement Report received from: ESTELLA Naqvi RN
[2025-04-28] MEDS: Lidocaine 2% Jelly 6 ML SYR (13:47)
[2025-04-28] MEDS: Omnipaque 300 MG/ML 50 ML BTL (13:47)
--- NOTE | 2025-04-28 13:53 | ROE_ITS ---
Operative Note Operative Note PRE-OP DIAGNOSIS: Left ureteral stone with infection POST-OP DIAGNOSIS: same PROCEDURE: Cystoscopy, right retrograde pyelogram, insert right ureteral stent SURGEON: Sergo Duron ANESTHESIA TYPE: Local By Surgeon and General LMA/ETT Refer to Anesthesia Record ESTIMATED BLOOD LOSS: 5 PATHOLOGY: none sent COMPLICATIONS: None Patient was transported to: PACU Patient's condition: stable Implants: 6 Surinamese by 22 to 30 cm right ureteral stent 16 kyrgyz jordan with 10 cc sterile water in balloon Indications: This is a 64-year-old woman who presented to the emergency department this morning with right sided abdominal and flank pain. She was found to have a right distal ureteral stone. She has an elevated serum white blood count with a left shift. Her urinalysis is concerning for an infection. She had a positive urine culture (E. coli) just about 2 weeks ago. Her serum lactate was elevated With concerns for an infected obstructed ureter, she presents for urgent stent placement Findings: Purulent material in bladder and from right ureter Procedure Description: The patient had been given IV antibiotics in the emergency department. She was brought to the operating room on 04/28/2025. After successful induction of general anesthesia, she was placed in the dorsal lithotomy position. Her genitalia was prepped and draped. 2% Xylocaine jelly was instilled into the urethra. A 22 Surinamese rigid cystoscope was passed through the urethra into the bladder. The bladder was drained and a large amount of cloudy urine was obtained. The bladder was then inspected with a 30 degree lens. The right ureteral orifice was visualized and was cannulated with a 6 Surinamese access catheter. A retrograde pyelogram was obtained by injecting Omnipaque through the access catheter under fluoroscopic guidance. The distal ureter appeared relatively no rmal but the proximal two thirds of the ureter and collecting system were dilated. I then passed a guidewire through the lumen of the access catheter and advanced the wire until it was seen in the upper pole calyx. The access catheter was removed and purulent material could be seen draining down from the right kidney. A 6 Sur[place]amese variable length stent was advanced over the wire and the proximal end of the stent was curled in the upper pole calyx and the distal end was curled within the bladder. The positioning the stent was confirmed both fluoroscopically and cystoscopically. To ensure maximal drainage of the system, I removed the cystoscope and passed a 16 Surinamese Jordan catheter through the urethra into the bladder. The catheter balloon was inflated with 10 cc of sterile water and the catheter was hooked to gravity drainage. The patient tolerated this procedure well. She was taken to the recovery room in stable condition. She will be transferred upstairs for supportive care and antibiotics. Date of Procedure: 04/28/25
--- NOTE | 2025-04-28 13:54 | DI.RAD_ITS ---
Exam(s) XR RETROGRADE IN OR EXAM: XR RETROGRADE IN OR CLINICAL HISTORY: RIGHT URETERAL STONE TECHNIQUE: 2D and realtime digital imaging was performed. CONTRAST MATERIAL: Refer to procedure report. COMPARISON: CT CT ABDOMEN PELVIS WO from 04/28/2025 FINDINGS: Fluoroscopy was provided for Dr. Duron during the performance of a evaluation of the right renal col lecting system. Please refer to the procedure report for complete details. Ka,r=2.0 mGy IMPRESSION: RADIATION DOSE DELIVERED: 0.0 0.0 0
--- NOTE | 2025-04-28 14:23 | W.ANESPOSTOP ---
Postoperative Evaluation Date, Time and Location Date Performed: 04/28/25 Time Performed: 14:23 Patient Location: PACU Vital Signs Most Recent Imported Vital Signs: Most Recent Vital Signs Temp Pulse Resp BP Pulse Ox 36.7 C 118 H 18 156/88 H 97 04/28/25 14:20 04/28/25 14:21 04/28/25 14:21 04/28/25 14:21 04/28/25 14:21 Pain Score Most Recent Pain Score: Most Recent Pain Score Pain Level 0 04/28/25 14:20 Assessment Mental Status: Arousable with meaningful communication (This was her baseline in the ED. ) Airway and Respiratory Function: Patent airway with normal (patient baseline) respiratory exam Cardiovascular Function: Hemodynamically Stable Hydration Status: Adequately Hydrated Nausea & Vomiting: No Nausea or Vomiting Pain: Pain is tolerable per patient Peripheral Nerve Block: Patient did not receive a nerve block
--- NOTE | 2025-04-28 19:11 | HPE_ITS ---
Date of service: 04/28/25 Time of Service: 11:10 Assessment and Plan Assessment and plan (1) Calculus, ureteral: Status: Acute Assessment and plan: 1. Right distal ureteral stone with obstruction and concurrent UTI * Likely urosepsis pending culture results. * IV ceftriaxone started; continue IV antibiotics. * Blood and urine cultures pending. * Urology recommends urgent stent placement. Patient to OR with Dr Duron. * MIVF 2. Acute pain management * Continue pain control, monitor response. 3. Nausea and vomiting * Administer antiemetics as needed. (2) Chronic kidney disease: Status: Chronic Assessment and plan: * Monitor renal function. No dialysis currently required. * Cr 1.4 (3) Hyperglycemia: Status: Acute Assessment and plan: Monitor glucose levels, finger sticks ACHS SSI Diabetic diet History of Present Illness History of Present Illness Chief Complaint: Acute right sided flank pain N arrative: The patient is a 64-year-old female with a past medical history significant for renal disease (previously on CRRT, currently off dialysis) and chronic bacteriuria, presenting to the Emergency Department with acute right-sided flank and abdominal pain. She notes that while she has experienced some chronic discomfort in this region previously, today?s episode marked a distinct escalation in intensity. Associated symptoms include hematuria, nausea, and vomiting. Initial labs demonstrated leukocytosis WBC 15, mild anemia, and a creatinine of 1.4, consistent with her baseline renal function. Mild hyperglycemia was noted without evidence of diabetic ketoacidosis. Urinalysis revealed pyuria and was sent for culture. Blood cultures were also obtained. CT imaging was initially delayed due to the patient?s inability to remain still; however, after administering droperidol, imaging was successfully completed. The CT scan revealed a 4 mm right distal ureteral stone just proximal to the ureterovesical junction, along with right hydronephrosis and hydroureter. She received IV fluids and a dose of ceftriaxone. Given her leukocytosis in the setting of an obstructing stone and infected urine, Urology was consulted. They recommend urgent ureteral stent placement. Ureteroscopy and stone extraction are deferred until outpatient follow-up, post-infection resolution. She is being admitted under observation status for IV antibiotics, pain control, and coordination with urology. Past Medical History * Renal disease (previously on CRRT, not currently dialysis-dependent) * Chronic bacteriuria Laboratory Data * WBC: 15,000 /?L * Hgb: 10.3 * Cr: 1.4 mg/dL * Glucose: Mildly elevated * UA: Pyuria, hematuria * Urine culture: pending - previous history of E coli * Blood cultures: pending Imaging * CT Abdomen/Pelvis: Right hydronephrosis and hydroureter with a 4 mm distal ureteral stone at UVJ. Disposition: Admit to Med-Surg Observation for IV antibiotics, pain management, and coordination of urologic care. Review of Systems Narrative: General: No recent weight loss. Reports nausea and vomiting today. * : Hematuria, right flank pain. * GI: Nausea, no diarrhea or constipation reported. * Cardiac/Pulmonary/Neuro: Denies chest pain, shortness of breath, focal weakness or numbness. All systems reviewed & are unremarkable except as noted in HPI and below PFSH All Active Problems (Updated 04/28/25 @ 19:20 by Ruth Nix NP) Hyperglycemia (Acute) Chronic kidney disease (Chronic) Acute pyelonephritis (Acute) Acute UTI (Acute) Calculus, ureteral (Acute) Leukocytosis (Acute) Acute right flank pain (Acute) Osteopenia (Acute) Medical History (Updated 04/28/25 @ 19:20 by Ruth Nix NP) Hypothyroidism Hypertension Hyperlipidemia Palpitations Tobacco use Hx of chest pain Neuropathy Spinal stenosis of lumbar region Skin lesion Pain in limb History of neck pain Dysuria Anxiety Rupture of appendix Abnormal uterine bleeding Disorder of tendon of biceps Chronic pain syndrome Graves disease Hand paresthesia Intracranial meningioma Myalgia Genital prolapse Pleomorphic adenoma of parotid gland GERD (gastroesophageal reflux disease) Sciatica Abdominal pain in female Neuralgia Hx of visual disturbance Migraine History of depression Alcohol abuse Acute hip pain, bilateral Otalgia of left ear Osteoarthritis Other fdc (current) drug therapy Type 2 diabetes mellitus Family History (Updated 01/02/23 @ 11:00 by Anna Gaviria) Brother Alcohol use disorder Mother Arthritis Myocardial infarction Father Diabetes Hypertension Hypercholesterolemia Cerebrovascular disease Heart disease Sister Diabetes Social History (Updated 01/02/23 @ 11:01 by Anna Gaviria) Smoking/Tobacco Use Status: Current every day Smoking risk assessment performed?: Yes Alcohol Intake: former Drug use: Never Housing: house Meds Allergies and Home Medications Allergies Allergy/AdvReac Type Severity Reaction Status Date / Time acetaminophen (From Percocet) Allergy Unknown Verified 04/28/25 06:40 nystatin Allergy Unknown Verified 04/28/25 06:40 oxycodone (From Percocet) Allergy Unknown Verified 04/28/25 06:40 Sulfa (Sulfonamide Allergy Unknown Verified 04/28/25 06:40 Antibiotics) Home Medications ?Medication ?Instructions ?Recorded ?Confirmed ?Type aspirin 81 mg tablet,delayed 81 mg PO DAILY 01/02/23 04/28/25 History release cyclosporine 0.05 % eye drops in a 1 drp ophthalmic (eye) Q12H 01/02/23 04/28/25 History dropperette (Restasis) levothyroxine 100 mcg capsule 100 mcg PO DAILY 01/02/23 04/28/25 History lifitegrast 5 % eye drops in a 1 drp ophthalmic (eye) BID 01/02/23 04/28/25 History dropperette (Xiidra) naproxen 500 mg tablet 500 mg PO BID 01/02/23 04/28/25 History omeprazole 40 mg capsule,delayed 40 mg PO DAILY 01/02/23 04/28/25 History release rosuvastatin 40 mg tablet 40 mg PO DAILY 01/02/23 04/28/25 History sumatriptan succinate 50 mg tablet See Rx Instructions PO .COMPLEX 01/02/23 04/28/25 History zolmitriptan 2.5 mg tablet See Rx Instructions PO .COMPLEX 01/02/23 04/28/25 History cholecalciferol (vitamin D3) 25 25 mcg PO DAILY 08/18/24 04/28/25 History mcg (1,000 unit) capsule ferrous sulfate 325 mg (65 mg 325 mg PO DAILY 08/18/24 04/28/25 History iron) tablet (FeroSul) insulin degludec 100 unit/mL (3 10 unit subcut DAILY 08/18/24 04/28/25 History mL) subcutaneous pen (Tresiba FlexTouch U-100 insulin) levothyroxine 75 mcg capsule 75 mcg PO DAILY 08/18/24 04/28/25 History multivitamin 1 tab PO DAILY 08/18/24 04/28/25 History pregabalin 75 mg capsule See Rx Instructions PO DAILY 08/18/24 04/28/25 History semaglutide 0.25 mg or 0.5 mg (2 0.25 mg subcut QWEEK 08/18/24 04/28/25 History mg/3 mL) subcutaneous pen injector (Ozempic) sitagliptin phosphate 25 mg tablet 25 mg PO DAILY 08/18/24 04/28/25 History (Arturo) vitamin B complex 1 cap PO DAILY 08/18/24 04/28/25 History cephalexin 250 mg capsule 250 mg PO DAILY 04/28/25 04/28/25 History Exam Narrative Exam Narrative: * General: Alert, uncomfortable due to pain. * Vitals: Tachycardic, normotensive, afebrile at presentation. * Abdomen: Right-sided tenderness; no rebound or guarding. * : CVA tenderness on the right. * Neuro: Alert and oriented x3. No focal deficits. Results Labs 04/28/25 07:05 04/28/25 07:05 Labs: Laboratory Results - last 24 hr 04/28/25 04/28/25 04/28/25 07:05 10:01 11:00 WBC 15.55 H RBC 4.00 Hgb 10.3 L Hct 34.5 L MCV 86 MCH 25.8 L MCHC 29.9 L RDW 13.3 Plt Count 230 MPV 11.3 H Immature Gran % 0.4 Neutrophils % 85.3 Lymphocytes % 7.5 Monocytes % 5.9 Eosinophils % 0.4 Basophils % 0.5 Nucleated RBC % 0.0 Absolute Neutrophils 13.26 H Absolute Lymphocytes 1.17 L Absolute Monocytes 0.92 H Absolute Eosinophils 0.06 Absolute Basophils 0.08 VBG Lactate 2.2 H* Sodium 142 Potassium 4.0 Chloride 106 Carbon Dioxide 25.4 Anion Gap 10.6 BUN 20 H Creatinine 1.4 H Est GFR (CKD-EPI 2020) 41.49 Glucose 221 H Calcium 8.8 Total Bilirubin 0.2 AST 18 ALT 28 Alkaline Phosphatase 101 Total Protein 7.3 Albumin 3.7 Urine Color Yellow Urine Clarity Clear Urine pH 6.0 Ur Specific [place] 1.015 Urine Protein 30 H Urine Ketones Negative Urine Blood Large H Urine Nitrite Negative Urine Bilirubin Negative Urine Urobilinogen 0.2 Ur Leukocyte Esterase Large H Urine RBC 20-50 H Urine WBC >50 H Ur Epithelial Cells Rare Urine Crystals Negative Urine Bacteria Many Urine Casts 0-2 Hyaline Urine Mucus Negative Urine Other Few Renal Ur Culture Indicated? Yes Urine Glucose Negative Last Vital Signs Temp 36.9 C 04/28/25 18:19 Pulse 114 H 04/28/25 18:19 Resp 17 04/28/25 18:19 BP 136/77 04/28/25 18:19 Pulse Ox 94 04/28/25 18:19 Time Spent Time spent with Patient: 40-54 minutes Time was spent: preparing to see the patient(eg.review tests), obtaining and/or reviewing separately otained hiistory, ordering medications,tests, procedures, referring, communicating with other health health care marketing specialist, indepentently interpreting results, counseling the patient and care coordination
[2025-04-28] MEDS: Normal Saline 1,000 ML 125 ML IV (20:02)
[2025-04-28] MEDS: Pregabalin 25 MG CAP 75 MG PO (20:02)
[2025-04-28] MEDS: Normal Saline Flush 10 ML SYR (20:03)
[2025-04-29 03:22] VITALS: BP 136/77; PULSE 106; RESP 18; TEMP 37; O2SAT 92
[2025-04-29] MEDS: Levothyroxine 75 MCG TAB PO (06:10)
[2025-04-29] MEDS: Normal Saline 1,000 ML 125 ML IV (06:13)
[2025-04-29 06:52] LABS: Abs Immature Grans 0.25 10^3/uL (0.0-0.06); Absolute Basophil Count 0.03 10^3/uL (0.0-0.2); Absolute Lymphocyte Count 0.59 10^3/uL (1.2-3.4); Absolute Monocyte Count 1.02 10^3/uL (0.1-0.8); Basophils % 0.2 %; HGB 9.4 g/dL (11.2-15.7); Immature Grans % 1.6 %; Lymphocytes % 3.7 %; MCH 26.2 pg (27.0-33.0); MCHC 31.3 % (32.0-36.0); MCV 84 fL (80-95); MPV 12.1 fL (8.0-11.0); Monocytes % 6.4 %; Neutrophils % 88.1 %; Platelet Count 210 10^3/uL (130-400); RBC 3.59 10^6/uL (3.93-5.22); RDW 13.4 % (11.7-14.6); RDW-SD 41.3 fL; WBC 15.94 10^3/uL (4.4-10.8)
[2025-04-29 06:55] LABS: Absolute Neutrophil Count 14.04 10^3/uL (1.2-6.7)
[2025-04-29 07:04] LABS: Anion Gap 12.3 mmol/L (3-11); BUN 23 mg/dL (7-18); CO2 22.7 mmol/L (21.0-32.0); CREATININE 1.5 mg/dL (0.55-1.02); Calcium 8.3 mg/dL (8.5-10.1); Chloride 110 mmol/L (98-107); Glucose 147 mg/dL (74-106); Magnesium 1.6 mg/dL (1.8-2.4); Potassium 3.7 mmol/L (3.5-5.1); Sodium 145 mmol/L (136-145)
[2025-04-29 07:10] VITALS: BP 127/77; PULSE 112; RESP 16; TEMP 36; O2SAT 95
[2025-04-29] MEDS: Multivitamin TAB 1 TAB PO (08:37)
[2025-04-29] MEDS: cefTRIAXone 1 GM/50 ML BAG IVPB (08:37)
[2025-04-29] MEDS: Vitamins B Comp w/C TAB 1 TAB PO (08:38)
[2025-04-29] MEDS: Rosuvastatin 20 MG TAB 40 MG PO (08:38)
[2025-04-29] MEDS: Omeprazole 20 MG CAPCR 40 MG PO (08:38)
[2025-04-29] MEDS: Pregabalin 150 MG CAP PO (08:38)
[2025-04-29] MEDS: Insulin Aspart 300 UNITS/3 ML PEN SC ×2 (08:55→12:07)
[2025-04-29] MEDS: MAGNESIUM SULFATE 1 GM/100 ML BAG IV_INF (09:44)
--- NOTE | 2025-04-29 10:05 | PDOC.CMIN ---
Date of service: 04/29/25 Time of Service: 10:06 Care Management Initial Assmt Initial Assessment Reason for Hospitalization: Acute right sided flank pain Functional Status/Living Situation Patient Presentation: Rhoda was sitting up on the edge of her bed when CM met with her. She was pleasant and engaged easily in conversation. She stated that per provider, she will be discharging home today. She stated that she is happy to be going home so she can see her dogs, [place] and [place]. She reported that she lives with her ex-, Randal, who has a complicated medical history, and she provides support for. She stated that she has learned over the years to set boundaries, as she knows that it is important that she takes care of herself, too. Rhoda stated that Randal would be picking her up to bring her home, and he will bring some clothes for her. Per report, she will follow up with Urology outpatient. CM discussed the COA to help support both her and Randal, but she did not indicate that a referral to COA would be helpful at this time. She reported that her pharmacy is [facility] in [place], but for short prescriptions, she requested that they be sent to [facility] in [place], as she won't be able to get to [place] for a while. CM will continue to follow. Town of Residence: [place] Resides with: Spouse (Randal) Natural Supports: Rhoda has some good friends who are supportive, including Buck and Petros. Employment Status: Unemployed (Rhoda helps support her ex , but does not get paid for it.) Instrumental Activities of Daily Living (ADLs): Independent Activities/Hobbies/SocialSupport: Rhoda enjoys taking her dog, Lisa for walks down by the river in her back yard, and listening to the calming noises of the river. Medications Medication Management: No Issues/Barriers identified Advance Directives Advance Directives: Do you have an Advance Directive: N 04/28/25 08:[address] File [address] [facility]: N 01/22/24 13:07 Date Asked 04/28/25 04/28/25 07:46 AD Date Reviewed COLST On File at [facility] COLST Date Scanned Code Status Resuscitation Status Full Code Insurance Coverage/Financial Issues Insurance: [facility] Care Team Visit Care Team Role Provider Type Ruth Nix NP MD [facility] STAFF PHYSICIAN Nellie Lorenzo Primary Care Provider NON-[facility] STAFF PHYSICIAN Anh Ingram RDN, CDCES Other Providers MACHINE BANDER AND CELLOPHANER HELPER Sergo Duron MD Other Providers [facility] STAFF PHYSICIAN Gil Cortes RDN Other Providers MACHINE BANDER AND CELLOPHANER HELPER Kristen Ralph MD Emergency Provider [facility] STAFF PHYSICIAN Oseas Graham MD Admit Provider [facility] STAFF PHYSICIAN Attending Provider Discharge Potential Discharge Needs: PCP F/U Appt Anticipated Barriers to Discharge: None Identified Patient/Family Education Needs: Review discharge instructions, discuss Ask Me Three Transportation: Private vehicle Plan: Anticipate Rhoda will return home once medically cleared. Her s/o will drive her home via private vehicle. She will follow up with her PCP and discharge plan of care. CM will continue to follow. Social Determinants of Health Screening Will the Patient Participate in the Screening?: Unable to obtain PFSH All Active Problems (Updated 04/28/25 @ 19:20 by Ruth Nix NP) Hyperglycemia (Acute) Chronic kidney disease (Chronic) Acute pyelonephritis (Acute) Acute UTI (Acute) Calculus, ureteral (Acute) Leukocytosis (Acute) Acute right flank pain (Acute) Osteopenia (Acute) Medical History (Updated 04/28/25 @ 19:20 by Ruth Nix NP) Hypothyroidism Hypertension Hyperlipidemia Palpitations Tobacco use Hx of chest pain Neuropathy Spinal stenosis of lumbar region Skin lesion Pain in limb History of neck pain Dysuria Anxiety Rupture of appendix Abnormal uterine bleeding Disorder of tendon of biceps Chronic pain syndrome Graves disease Hand paresthesia Intracranial meningioma Myalgia Genital prolapse Pleomorphic adenoma of parotid gland GERD (gastroesophageal reflux disease) Sciatica Abdominal pain in female Neuralgia Hx of visual disturbance Migraine History of depression Alcohol abuse Acute hip pain, bilateral Otalgia of left ear Osteoarthritis Other fdc (current) drug therapy Type 2 diabetes mellitus Family History (Updated 01/02/23 @ 11:00 by Anna Gaviria) Brother Alcohol use disorder Mother Arthritis Myocardial infarction Father Diabetes Hypertension Hypercholesterolemia Cerebrovascular disease Heart disease Sister Diabetes Social History (Updated 01/02/23 @ 11:01 by Anna Gaviria) Smoking/Tobacco Use Status: Current every day Smoking risk assessment performed?: Yes Alcohol Intake: former Drug use: Never Housing: house
--- NOTE | 2025-04-29 12:35 | DSE_ITS ---
Date of service: 04/29/25 Time of Service: 12:35 DS: Diagnosis Discharge Diagnosis (1) Calculus, ureteral: Status: Acute (2) Chronic kidney disease: Status: Chronic (3) Hyperglycemia: Status: Acute Discharge Plan Disposition Patient Disposition: Home Condition: Improving Discharge Details Reason For Visit: SUMEET Admit Date/Time: 04/28/25 15:15 Admit Provider: Oseas Graham Attending Provider: Oseas Graham Primary Care Provider: Nellie Lorenzo Hospital Course Hospital Course: Admitting Diagnosis: * Right distal ureteral stone with obstruction and UTI * Suspected urosepsis Discharge Diagnoses: * Ureteral calculus with obstruction and concurrent urinary tract infection * Chronic kidney disease, non-dialysis dependent * Hyperglycemia * Acute right flank pain * Nausea and vomiting * Leukocytosis HOSPITAL COURSE The patient is a 64-year-old female with chronic kidney disease (previously on CRRT), chronic bacteriuria, and type 2 diabetes mellitus, who presented with acute right-sided flank pain, nausea, vomiting, and hematuria. Labs revealed leukocytosis (WBC 15.5), creatinine of 1.4 (baseline), and urinalysis with pyuria and bacteriuria. Blood and urine cultures were obtained. CT scan showed a 4 mm right distal ureteral stone near the ureterovesical junction, with associated right hydroureter and hydronephrosis, suggestive of obstructive pyelonephritis. Urology was consulted and recommended urgent decompression. The patient underwent right ureteral stent placement by Dr. Duron. Stone extraction will be deferred to outpatient follow-up once the infection has resolved. She received IV ceftriaxone during hospitalization and improved clinically with pain and nausea control. Vitals remained stable and afebrile. DISCHARGE MEDICATIONS * Levofloxacin 750 mg PO daily x 5 days * Acetaminophen 500?650 mg PO q6h PRN pain (avoid NSAIDs) * Ondansetron 4 mg PO q8h PRN nausea * Resume home medications including: * Levothyroxine * Insulin degludec * Sitagliptin * Rosuvastatin * Omeprazole * Semaglutide * Naproxen [HOLD for renal protection] FOLLOW-UP PLAN Urology: * Follow-up with Dr. Duron or Urology Clinic in 1?2 weeks * Purpose: Post-stenting evaluation and plan for definitive stone management (e.g., ureteroscopy) Primary Care Provider (PCP): * Follow up in 1 week to monitor kidney function, glucose, and general status DISCHARGE INSTRUCTIONS * Maintain hydration * Monitor for fever, worsening pain, dysuria, or inability to void * Call your doctor or return to ED if symptoms worsen * Avoid NSAIDs and nephrotoxic agents * Continue diabetic diet and monitor glucose (ACHS finger sticks at home) Home Meds and New Rx's Prescriptions: New levofloxacin 750 mg tablet 750 mg PO DAILY Qty: 5 0RF Continued omeprazole 40 mg capsule,delayed release(DR/EC) 40 mg PO DAILY cyclosporine [Restasis] 0.05 % dropperette 1 drp ophthalmic (eye) Q12H rosuvastatin 40 mg tablet 40 mg PO DAILY multivitamin Tablet 1 tab PO DAILY Ozempic 0.25 mg or 0.5 mg (2 mg/3 mL) pen injector 0.25 mg subcut QWEEK Rx Instructions: for 4 weeks Januvia 25 mg tablet 25 mg PO DAILY insulin degludec [Tresiba FlexTouch U-100] 100 unit/mL (3 mL) insulin pen 10 unit subcut DAILY vitamin B complex Capsule 1 cap PO DAILY cephalexin 250 mg capsule 250 mg PO DAILY Patient Comments: Take 1 capsue by mouth Daily for 90 days ( start after three times a day cephalexin script is complete ) levothyroxine 75 mcg tablet 75 mcg PO DAILY pregabalin 150 mg capsule 150 mg PO BID Discharge Instructions Instructions: Levofloxacin (Systemic), Urinary Obstruction (DC), Urinary tract infection - Discharge instructions Additional Instructions: Medications at Home * Levofloxacin 750 mg ? Take one tablet by mouth once daily for 5 days. * Take with a full glass of water. * Do not take with antacids, calcium, or iron supplements within 2 hours of your dose. * Contact your doctor if you experience tendon pain, numbness, confusion, or rash. * Continue your home medications unless told otherwise. * Avoid NSAIDs (like ibuprofen or naproxen) unless cleared by your provider. Activity * Rest as needed; slowly resume normal activities. * Avoid heavy lifting or strenuous activity until cleared. * Stay well hydrated unless instructed otherwise by your doctor. Diet * Resume regular or diabetic diet as tolerated. * Drink plenty of fluids unless restricted (aim for 6?8 glasses/day). Follow-Up * Urology: Follow-up in 1?2 weeks for stent check and definitive stone management. - Dr Duron's office will call you. * Primary Care: Within 1 week to monitor labs, kidney function, and overall recovery. * Return to ED or call your provider if: * Fever returns or worsens * You are unable to urinate * New or worsening flank pain * Severe nausea/vomiting * Allergic reaction to medication (rash, swelling, difficulty breathing) Referrals: Sergo Duron MD [ [facility] STAFF PHYSICIAN] - (I spoke with urology, they will call you for a follow up in 1-2 weeks. ) Nellie Lorenzo [Primary Care Provider] - (Follow up in 1-2 weeks post in patient hospitalization for urosepsis. ) Activity:: Activity as Tolerated Equipment/Supplies:: No Equipment Needed Diet:: As Tolerated Discharge Orders Discharge Orders: Discharge Order (Routine); Ordered 04/29/25 Ordered By: Ruth Nix DS: Summary Time Spent with Patient providing and/or coordinating discharge services: Greater than 30 minutes Status at Discharge Functional status at discharge: independent ambulation Overall status at discharge: patient is back to baseline Mental Status: mental status grossly normal Speech and Movement: speech and movement normal Mood: congruent mood Affect: normal affect Quality:SDOH Health Related Social Needs: No Data to Display Exam Narrative Exam Narrative: * General: Alert, oriented x 4, conversant, pleasant * Vitals: Hr 70s, normotensive, afebrile * Abdomen: No tenderness; no rebound or guarding. * : Voiding without difficulty * Neuro: Alert and oriented x3. No focal deficits. Psych Mental Status: mental status grossly normal Speech and Movement: speech and movement normal Mood: congruent mood Affect: normal affect DS: Data Vitals/I&O Vitals and I&O: Vital Signs Temperature 36.0 C L 04/29/25 07:10 Temperature Source Temporal Artery Scan 04/29/25 07:10 Pulse 112 H 04/29/25 07:10 Pulse Rhythm Regular 04/28/25 16:21 Pulse 119 H 04/28/25 15:00 Respiratory Rate 16 04/29/25 07:10 Respiratory Effort Normal 04/28/25 16:21 Respiratory Depth Normal 04/28/25 16:21 Respiratory Pattern Normal 04/28/25 16:21 Blood Pressure 127/77 04/29/25 07:10 Blood Pressure Mean 93 04/29/25 07:10 Blood Pressure Position Sitting 04/28/25 06:38 Pulse Oximetry 95 04/29/25 07:10 Respiratory End-tidal CO2 27 04/28/25 15:00 Oxygen Delivery Method Room Air 04/29/25 07:10 Oxygen Flow Rate 0 04/29/25 07:10 Pain Level 0 04/29/25 07:10 Comment PT ARRIVED IN PACU. 04/28/25 14:07 Intake & Output 04/28/25 04/29/25 04/29/25 23:59 11:59 23:59 Intake Total 2060 / 2560 1695.833 / 1695.833 Output Total 425 / 425 2000 / 2200 200 / 2200 Balance 1635 / 2135 -304.167 / -504.167 -200 / -504.167 Weight 46.72 kg Intake: IV 2060 / 2560 1695.833 / 1695.833 Output: Urine 425 / 425 2000 / 2200 200 / 2200 Other: Urine Color Light Mihaela Pale Yellow Urine Appearance Clear Clear Clear Cloudy Emesis Description None Data Completed and Pending Labs on day of discharge: Labs from last 24 hours 04/29/25 06:15 WBC 15.94 H RBC 3.59 L Hgb 9.4 L Hct 30.0 L MCV 84 MCH 26.2 L MCHC 31.3 L RDW 13.4 Plt Count 210 MPV 12.1 H Immature Gran % 1.6 Neutrophils % 88.1 Lymphocytes % 3.7 Monocytes % 6.4 Eosinophils % 0.0 Basophils % 0.2 Nucleated RBC % 0.0 Absolute Neutrophils 14.04 H Absolute Lymphocytes 0.59 L Absolute Monocytes 1.02 H Absolute Eosinophils 0.00 Absolute Basophils 0.03 Sodium 145 Potassium 3.7 Chloride 110 H Carbon Dioxide 22.7 Anion Gap 12.3 H BUN 23 H Creatinine 1.5 H Est GFR (CKD-EPI 2020) 38.20 Glucose 147 H Calcium 8.3 L Magnesium 1.6 L 04/28/25 10:55 Blood Blood Culture - Pending 04/28/25 11:00 Blood Blood Culture - Pending 04/28/25 10:01 Urine - Reflex from Ua Urine Culture - Pending Preliminary micro results at discharge 04/28/25 10:55 Blood Blood Culture - Pending 04/28/25 11:00 Blood Blood Culture - Pending 04/28/25 10:01 Urine - Reflex from Ua Urine Culture - Pending [facility] All Active Problems (Updated 04/28/25 @ 19:20 by Ruth Nix NP) Hyperglycemia (Acute) Chronic kidney disease (Chronic) Acute pyelonephritis (Acute) Acute UTI (Acute) Calculus, ureteral (Acute) Leukocytosis (Acute) Acute right flank pain (Acute) Osteopenia (Acute) Medical History (Updated 04/28/25 @ 19:20 by Ruth Nix NP) Hypothyroidism Hypertension Hyperlipidemia Palpitations Tobacco use Hx of chest pain Neuropathy Spinal stenosis of lumbar region Skin lesion Pain in limb History of neck pain Dysuria Anxiety Rupture of appendix Abnormal uterine bleeding Disorder of tendon of biceps Chronic pain syndrome Graves disease Hand paresthesia Intracranial meningioma Myalgia Genital prolapse Pleomorphic adenoma of parotid gland GERD (gastroesophageal reflux disease) Sciatica Abdominal pain in female Neuralgia Hx of visual disturbance Migraine History of depression Alcohol abuse Acute hip pain, bilateral Otalgia of left ear Osteoarthritis Other fdc (current) drug therapy Type 2 diabetes mellitus Family History (Updated 01/02/23 @ 11:00 by Anna Gaviria) Brother Alcohol use disorder Mother Arthritis Myocardial infarction Father Diabetes Hypertension Hypercholesterolemia Cerebrovascular disease Heart disease Sister Diabetes Social History (Updated 01/02/23 @ 11:01 by Anna Gaviria) Smoking/Tobacco Use Status: Current every day Smoking risk assessment performed?: Yes Alcohol Intake: former Drug use: Never Housing: house Time Spent with Patient Time Spent with Patient: 45-69 minutes Time was spent: preparing to see the patient(eg.review tests), ordering medications,tests, procedures, referring, communicating with other health respiratory care practitioner, indepentently interpreting results, counseling the patient and care coordination
[2025-04-29 14:52] VITALS: BP 129/113; PULSE 103; RESP 16; TEMP 37; O2SAT 97
--- NOTE | 2025-04-29 14:55 | PDOC.CMDIS ---
Date of service: 04/29/25 Time of Service: 14:55 LACE Index Scoring Tool Questions: Length of Stay (in days): 1 Was the patient admitted via the E.D.?: Yes Comorbidities: Liver or Renal Disease E.D. Visits: 0 Answers: Total Score: 9 Risk of Readmission: Low Risk Care Management Discharge Plan Reason for Hospitalization: UTI Discharge Plan: April returned home today with no new services. Her ex , who she lives with, will transport her home via private vehicle. She will follow up with her PCP and discharge plan of care. She is happy to be going home. Patient/Family Education Needs: Review discharge instructions and limitations, discussion of self care needs including ask me three. SD[facility] Health Related Social Needs: No Data to Display
[2025-04-29 15:03] VITALS: BP 130/80
--- NOTE | 2025-04-29 16:38 | CHAPLAIN ---
Rhoda was waiting to be discharged when I visited. She had a stent placed and will be returning to have kidney stones blasted. She said she's been dealing with pain from kidney stones for over a year, including a long stay at [facility], an no one has yet be able to eliminate her pain. She's also had a UTI for a few years, without success of cleaning it up so she has not her raysa in the medical system, Rhoda explained. She lives at home with her two dogs, Lisa and Carlton, and her exhusband who has health issues. She is missing her dogs very much and looking forward to getting back to them this afternoon and then sitting about [place], a place which is her solace.
--- NOTE | 2025-04-30 11:40 | DM INPTCON_ITS ---
Date of service: 04/29/25 Time of Service: 15:00 Diabetes Inpatient Consult Reason for Visit: received nutrition consult request re: diabetes ed/mgt DESCRIPTION/ASSESSMENT: Visited with April yesterday. States she was at [facility] and lost over 30 lbs during COVID. States she was told to follow a heavy fat diet. She couldn't relay which staff said this (nutrition staff, provider, nurse?) and I let her know I thought maybe that offered education on weight gain and increasing kcals but I educated her that high fat diet assumes greater intake of animal products which will contribute more to kidney issues more than following a plant based diet with lean protein choices. We discussed diabetes and she related story of her father with amputations and saying to hell with this I'm eating what I want - she seems to come from the same line of thought. She is upset due to med changes on her admission and was due for her ozempic shot today (sunday). She shares she eats about 2-3 bags of green grapes per week - loves them - but was told at [facility] not to eat the green ones.Again she couldn't tell me why this was told to her (as there would be no indication not to eat grapes, just maybe elevated glyucose concerns maybe) She tends to like [facility] sometimes. Shares current breakfast is 2 eggs and 1 domingo ada sg rafael. We reviewed fiber in diet as I assess her diet is extremely deficient in fiber. Gave her my card to contact for outpatient services if she wants support/guidance. nutrition dx: lower working knowledge of nutrition and how it relates to managing her chronic conditions, as evidenced by patient interview/assessment today. INTERVENTION: encouraged outpatient appt - pt will consider continuing with some education and guidance with diet. PLAN: will continue to monitor - pt plans d/c later today Time Spent in Nutritional Counseling and Treatment: 15 min
== END 2025-04-29 16:07 | disposition home or self-care (01) ==
LOC: ER 11:07 → DSU 15:14 → MS 19:22
PROVIDERS: Student in an Organized Health Care Education/Training Program; Urology; Admitting Provider Hospitalist; Emergency Provider Emergency Medicine; PCP Legal Medicine; Responsible Provider Nurse Practitioner Family; Visit Provider Hospitalist
PROC: (CPT 74450; principal; 2025-04-28 12:30)
DX: N13.6 Pyonephrosis (principal); B96.20 Unspecified Escherichia coli [E. coli] as the cause of diseases classified elsewhere; D72.829 Elevated white blood cell count, unspecified; E03.9 Hypothyroidism, unspecified; E78.5 Hyperlipidemia, unspecified; F17.210 Nicotine dependence, cigarettes, uncomplicated; F41.9 Anxiety disorder, unspecified; M48.061 Spinal stenosis, lumbar region without neurogenic claudication; G89.4 Chronic pain syndrome; K21.9 Gastro-esophageal reflux disease without esophagitis; G43.909 Migraine, unspecified, not intractable, without status migrainosus; F10.10 Alcohol abuse, uncomplicated; N18.9 Chronic kidney disease, unspecified; E11.22 Type 2 diabetes mellitus with diabetic chronic kidney disease; I12.9 Hypertensive chronic kidney disease with stage 1 through stage 4 chronic kidney disease, or unspecified chronic kidney disease; E11.65 Type 2 diabetes mellitus with hyperglycemia
CPT/HCPCS: 52332; 00123; 36415; 51798; 80048; 80053; 87040; 87077; 96361; 96365; 96366; 96367; 96375; 99222; 99285; J3490; 74176; 74420; 81003; 81015; 83605; 83735; 85025; 87086; 87186; 99239; G0378; J0330; J0696; J1100; J1790; J1815; J2003; J2405; J2704; J3475; Q9967

== ENCOUNTER → 2025-05-18 15:20 | Outpatient (BNVA) | payer MEDICARE, MEDICAID, SELFPAY | PROVIDERS: PCP Legal Medicine; Referring Provider Legal Medicine; Visit Provider Urology | DX: N20.1 Calculus of ureter (principal); N39.0 Urinary tract infection, site not specified | CPT/HCPCS: 99215; 81002 ==

== ENCOUNTER 2025-08-05 10:37 | Inpatient (IN) | payer MEDICARE, MEDICAID, SELFPAY ==
[2025-08-05 10:50] VITALS: BP 165/92; PULSE 100; RESP 14; TEMP 37.6; O2SAT 100
[2025-08-05 10:59] VITALS: BP 165/92; PULSE 100; RESP 14; TEMP 37.6; O2SAT 100
[2025-08-05 11:13] LABS: Abs Immature Grans 0.07 10^3/uL (0.0-0.06); HCT 25.2 % (36.0-46.0); HGB 7.2 g/dL (11.2-15.7); Immature Grans % 0.7 %; MCH 20.9 pg (27.0-33.0); MCHC 28.6 % (32.0-36.0); MCV 73 fL (80-95); MPV 11.3 fL (8.0-11.0); Platelet Count 310 10^3/uL (130-400); RBC 3.44 10^6/uL (3.93-5.22); RDW 17.2 % (11.7-14.6); RDW-SD 44.6 fL; WBC 9.61 10^3/uL (4.4-10.8)
[2025-08-05 11:26] LABS: Glucose 100 mg/dL (Negative)
[2025-08-05 11:26] LABS: Hypochromasia 1+; Microcytosis 2+; Poikilocytes 1+
[2025-08-05 11:30] LABS: ALT 26 U/L (14-59); AST 20 U/L (15-37); Albumin 3.9 g/dL (3.4-5.0); Alkaline Phosphatase 98 U/L (46-116); Anion Gap 12.5 mmol/L (3-11); BUN 18 mg/dL (7-18); Bilirubin, Total 0.2 mg/dL (0.2-1.0); CO2 23.5 mmol/L (21.0-32.0); Calcium 9.1 mg/dL (8.5-10.1); Chloride 98 mmol/L (98-107); Estimated GFR 35.35 (mL/min/1.73m2); Glucose 259 mg/dL (74-106); Potassium 4.5 mmol/L (3.5-5.1); Sodium 134 mmol/L (136-145); Total Protein 8.0 g/dL (6.4-8.2)
[2025-08-05 11:34] LABS: C & S Indicated? No; WBC 0-2 HPF (0-5)
[2025-08-05] MEDS: Acetaminophen 325 MG TAB 650 MG PO (11:58)
[2025-08-05] MEDS: Normal Saline 1,000 ML 1000 ML IV (11:58)
[2025-08-05 12:40] VITALS: TEMP 36.8
[2025-08-05] MEDS: MORPHine 10 MG/ML VIAL 5 MG IVP (12:40)
[2025-08-05] MEDS: diphenhydrAMINE 50 MG/ML VIAL 12.5 MG IVP (12:45)
[2025-08-05 13:17] VITALS: BP 151/70; PULSE 94; RESP 16; O2SAT 92
[2025-08-05] MEDS: Normal Saline - Diluent 50 ML VIAL IJ (13:49)
[2025-08-05] MEDS: Normal Saline Flush 10 ML SYR IVP ×2 (13:49→18:23)
[2025-08-05] MEDS: Omnipaque 350 MG/ML 100 ML BTL IJ (13:49)
--- NOTE | 2025-08-05 14:00 | DI.CT_ITS ---
Exam(s) CT ABDOMEN PELVIS W EXAM: CT ABDOMEN PELVIS W CLINICAL HISTORY: right flank pain, hx of renal stones with stent. TECHNIQUE: Imaging Protocol: Axial computed tomography images with coronal and sagittal reformatted images were created and reviewed CONTRAST MATERIAL: Intravenous: Omnipaque-350 75cc Oral: None COMPARISON: CT CT ABDOMEN PELVIS WO from 04/28/2025 FINDINGS: VISUALIZED LUNG BASES: No nodules nor pleural effusions evident. ABDOMEN: There is no ascites. LIVER: There are no focal hepatic lesions evident. No dilated intrahepatic ducts. GALLBLADDER/BILIARY: No obvious gallbladder pathology. CBD is not dilated. PANCREAS: No evidence of pancreatic mass nor dilatation of the pancreatic duct. SPLEEN: Spleen is not enlarged. No obvious intrasplenic lesions. Splenic and portal veins are patent. ADRENALS: There are no significant adrenal masses. KIDNEYS:No significant findings in left kidney. Mild perinephric streaking again noted. There has been interval placement of a right ureteral stent which extends from the renal kidney into the urinary bladder and the right ureter is not dilated. The right-sided hydronephrosis seen on the 04/28/2025 scan has resolved. The upper pigtail of the stent is in the upper pole infundibulum of the kidney and not in the renal pelvis. There is also lesser amount of perinephric streaking on the right side when compared to the prior study. Right ureter is not dilated. There are no obvious radiopaque calculi in the right kidney and renal pelvis nor within the nondistended right ureter and there are no radiopaque calculi seen in the urinary bladder. Bladder cystocele is again noted.. No kidney cysts nor solid renal masses. No evidence of renal abscess. Relatively symmetrical enhancement pattern in the kidneys bilaterally. ABDOMINAL AORTA: Calcified but not enlarged. Also no aneurysms of the iliac arteries. LYMPH NODES:There is no retroperitoneal nor paraaortic adenopathy. ABDOMINAL WALL: No evidence of significant anterior abdominal wall nor inguinal hernia. GI: There is no evidence of bowel obstruction, free air, nor abscess. PELVIS: GI: No evidence of appendicitis.There is abundant fecal material in the colon. No evidence of colonic diverticulosis nor diverticulitis. LYMPH NODES: There is no intrapelvic nor inguinal adenopathy. REPRODUCTIVE: Multiple calcified uterine fibroids are again noted. There is also a calcified left adnexal density again noted which is probably a exophytic calcified uterine fibroid. URINARY BLADDER: Cystocele again noted. Right sided ureteral stent in place. No radiopaque calculi seen in the bladder lumen. No obvious bladder masses. OSSEOUS: No fractures and no significant osseous lesions. IMPRESSION: 1. Compared to the CT scan 04/28/2025 there has been interval placement of right ureteral double pigtail stent which extends from the left side of the urinary bladder lumen up to the left kidney. The superior aspect of the stent is in the upper pole infundibulum/calyx region and not in the the renal pelvis. This may be significant given the symptomatology. The previously present hydronephrosis has mostly resolved. Enhancement pattern of the kidneys is homogeneous without evidence of obvious in homogeneity which would suggest possible pyelo nephritis. There are no radiopaque calculi in either kidney and no cysts nor masses.. There is a bladder cystocele again noted. 2. Multiple calcified uterine fibroids are again noted. No free fluid in the pelvis. Report called by myself to ER 08/05/2025 at 2:50 p.m. RADIATION DOSE DELIVERED: 247.81mGy.cm Total DLP DATA REPOSITORY: All CT scans at this facility are submitted to the National Radiology Data Registry (NRDR) Dose Index Registry (DIR) with the [employer] (ACR). RADIATION OPTIMIZATION: All CT scans at this facility use at least one of these dose optimization techniques: automated exposure control; mA and/or kV adjustment per patient size (includes targeted exams where dose is matched to clinical indication); or iterative reconstruction.
--- NOTE | 2025-08-05 16:26 | W.PM.HP.N ---
Date of service: 08/05/25 Time of Service: 17:08 Assessment and Plan Assessment and plan (1) Ureteral stent displacement: Status: Acute Assessment and plan: as per CT imaging report and HPI Urology consult OR plan for 08/04/2025 (2) Acute right flank pain: Status: Acute Assessment and plan: D/t above mentioned Offer PRN ultram every 6 hours and if pain is not resolved IV fentanyl for intractable pain Considered IV hydromoprhone but allergy to oxuycodone listed - patient unable to elaborate (3) Hyperlactatemia: Status: Acute Assessment and plan: Lactate 2.4, most likely not in the setting of sepsis- not meeting criteria But dehydration and medicines should be considered as etiology Slow IV hydration Lactate in AM (4) Acute UTI: Status: Acute Assessment and plan: UA positive for leuk esterase Ceftriaxone IV d/t stent and instrumentation on 08/05 Urine Cx pending Labs in AM (5) Type 2 diabetes mellitus: Assessment and plan: Capillary Glucose AC & HS with SSI Home dose of insulin bolus hold oral antihyperglycemic agents Labs in AM (6) Tobacco use: Assessment and plan: NRT (7) Hyperlipidemia: Assessment and plan: on home dose crestor (8) Hypertension: Assessment and plan: not on a pharmacological agent - will continue to monitor and treat PRN (9) Hypothyroidism: Assessment and plan: ongoing home medicine regimen (10) GERD (gastroesophageal reflux disease): Assessment and plan: On home dose PPI (11) Neuralgia: Assessment and plan: On home dose Lyrica (12) On deep vein thrombosis (DVT) prophylaxis: Status: Acute Assessment and plan: TEDs SCD's discussed with Dr. Pastrana History of Present Illness History of Present Illness Chief Complaint: Abdominal Pain Narrative: This 64-year-old female patient with a past medical history significant for right ureteral stent placement in April 2025 for nephrolithiasis, renal disease (previously on CRRT),chronic bacteriuria, current nicotine dependence, DM II, neuropathy and hyperlipidemia presented to the emergency department with acute right-sided flank and abdominal pain. Pain reported as excruciating, with nausea; denies fevers, chills, chest pain, vomiting, diarrhea, constipation or dysuria. As per CT report: upper pigtail of the stent is in the upper pole infundibulum of the kidney and not in the renal pelvis with ongoing bladder cystocele. Blood work significant for H&H 7.2 & 25.2, VBG lactate at 2.4; Cr 1.6 around baseline. ED provider mentioned discussing case with urology team with recommendation for medical admission under the hospitalist service with plan for OR on 08/06/2025. In the ED morphine, acetaminophen , droperidol and diphenhydramine Urinalysis revealed small amount of leukocyte esterase; urine culture ordered and ceftriaxone initiated. Patient confirmed DNR/DNI status. Limited ROS as the patient is restless from pain, abrupt in answering questions incompletely. Review of Systems All systems reviewed & are unremarkable except as noted in HPI and below PFSH All Active Problems (Updated 08/05/25 @ 20:04 by Joya Ignacio APRN) Hyperlactatemia (Acute) On deep vein thrombosis (DVT) prophylaxis (Acute) Ureteral stent displacement (Acute) Acute pyelonephritis (Acute) Acute UTI (Acute) Calculus, ureteral (Acute) Leukocytosis (Acute) Acute right flank pain (Acute) Osteopenia (Acute) Medical History (Updated 08/05/25 @ 20:04 by Joya Ignacio APRN) Hyperglycemia Chronic kidney disease Hypothyroidism Hypertension Hyperlipidemia Palpitations Tobacco use Hx of chest pain Neuropathy Spinal stenosis of lumbar region Skin lesion Pain in limb History of neck pain Dysuria Anxiety Rupture of appendix Abnormal uterine bleeding Disorder of tendon of biceps Chronic pain syndrome Graves disease Hand paresthesia Intracranial meningioma Myalgia Genital prolapse Pleomorphic adenoma of parotid gland GERD (gastroesophageal reflux disease) Sciatica Abdominal pain in female Neuralgia Hx of visual disturbance Migraine History of depression Alcohol abuse Acute hip pain, bilateral Otalgia of left ear Osteoarthritis Other intermediate (current) drug therapy Type 2 diabetes mellitus Family History (Updated 01/02/23 @ 11:00 by Anna Gaviria) Brother Alcohol use disorder Mother Arthritis Myocardial infarction Father Diabetes Hypertension Hypercholesterolemia Cerebrovascular disease Heart disease Sister Diabetes Social History (Updated 01/02/23 @ 11:01 by Anna Gaviria) Smoking/Tobacco Use Status: Current every day Smoking risk assessment performed?: Yes Alcohol Intake: former Drug use: Never Housing: house Meds Allergies and Home Medications Allergies Allergy/AdvReac Type Severity Reaction Status Date / Time acetaminophen (From Percocet) Allergy Unknown Verified 08/05/25 10:52 nystatin Allergy Unknown Verified 08/05/25 10:52 oxycodone (From Percocet) Allergy Unknown Verified 08/05/25 10:52 Sulfa (Sulfonamide Allergy Unknown Verified 08/05/25 10:52 Antibiotics) Home Medications ?Medication ?Instructions ?Recorded ?Confirmed ?Type omeprazole 40 mg capsule,delayed 40 mg PO DAILY 01/02/23 08/05/25 History release rosuvastatin 40 mg tablet 40 mg PO DAILY 01/02/23 08/05/25 History insulin degludec 100 unit/mL (3 18 unit subcut DAILY 08/18/24 08/05/25 History mL) subcutaneous pen (Tresiba FlexTouch U-100 insulin) multivitamin 1 tab PO DAILY 08/18/24 08/05/25 History sitagliptin phosphate 25 mg tablet 25 mg PO DAILY 08/18/24 08/05/25 History (Januvia) vitamin B complex 1 cap PO DAILY 08/18/24 08/05/25 History levothyroxine 75 mcg tablet 75 mcg PO DAILY 04/29/25 08/05/25 History pregabalin 150 mg capsule 150 mg PO BID 04/29/25 08/05/25 History insulin lispro 100 unit/mL 8 unit subcut QPM 08/05/25 08/05/25 History subcutaneous pen (Humalog KwikPen (U-100) Insulin) Exam Narrative Exam Narrative: 64-year-old female in acute distress from pain from abd right flank, restless, alert oriented x 3, no neurological focal deficit, clear breath sounds, S1-S2 regular no murmur, abdomen is round nondistended semi-firm nontender, no guarding and bowel sounds are present, no CVA tenderness, moves all 4 extremities Results Labs 08/05/25 11:05 08/05/25 11:05 Labs: Laboratory Results - last 24 hr 08/05/25 08/05/25 11:05 11:19 WBC 9.61 RBC 3.44 L Hgb 7.2 L Hct 25.2 L MCV 73 L MCH 20.9 L MCHC 28.6 L RDW 17.2 H Plt Count 310 MPV 11.3 H Immature Gran % 0.7 Neutrophils % 81.5 Lymphocytes % 10.1 Monocytes % 6.9 Eosinophils % 0.4 Basophils % 0.4 Nucleated RBC % 0.0 Absolute Neutrophils 7.83 H Absolute Lymphocytes 0.97 L Absolute Monocytes 0.66 Absolute Eosinophils 0.04 Absolute Basophils 0.04 RBC Morphology See Below Hypochromasia 1+ Poikilocytosis 1+ Microcytosis 2+ VBG Lactate 2.4 H* Sodium 134 L Potassium 4.5 Chloride 98 Carbon Dioxide 23.5 Anion Gap 12.5 H BUN 18 Creatinine 1.6 H Est GFR (CKD-EPI 2020) 35.35 Glucose 259 H Calcium 9.1 Total Bilirubin 0.2 AST 20 ALT 26 Alkaline Phosphatase 98 Total Protein 8.0 Albumin 3.9 Urine Color Yellow Urine Clarity Clear Urine pH 7.0 Ur Specific Marcus 1.015 Urine Protein 30 H Urine Ketones Negative Urine Blood Small H Urine Nitrite Negative Urine Bilirubin Negative Urine Urobilinogen 0.2 Ur Leukocyte Esterase Small H Urine RBC 3-5 H Urine WBC 0-2 Ur Epithelial Cells Rare Urine Crystals Negative Urine Bacteria Negative Urine Casts Negative Urine Mucus Negative Ur Culture Indicated? No Urine Glucose 100 H Last Vital Signs Temp 36.8 C 08/05/25 12:40 Pulse 94 H 08/05/25 13:17 Resp 16 08/05/25 13:17 BP 151/70 H 08/05/25 13:17 Pulse Ox 92 08/05/25 13:17 Time Spent Time spent with Patient: >75 minutes Time was spent: preparing to see the patient(eg.review tests), obtaining and/or reviewing separately otained hiistory, ordering medications,tests, procedures, referring, communicating with other health childbirth and infant care teacher, indepentently interpreting results, counseling the patient, care coordination and other
--- NOTE | 2025-08-05 16:29 | W.ED.GENAD ---
Discharge Plan Discharge Details Chief Complaint: FlankPain Admit Date/Time: 08/05/25 16:54 Admit Provider: Bobby Pastrana Attending Provider: Bobby Pastrana Primary Care Provider: Nellie Lorenzo ED Provider: Nikita Mckinnon Discharge Data Discharge Date/Time-TO BE ENTERED AT DEPARTURE: 08/05/25 18:05 HPI General Date/Time Provider Initiated Documentation: 08/05/25 11:00. HPI Narrative: MDM/Narrative: 64-year-old female with sudden onset flank pain since 2130 hours last night, reminiscent of typical kidney stone pain. Stent placed in April 2025, not yet removed. No fever, chills, vomiting, or dysuria. Unable to take NSAIDs due to double kidney failure. Declined morphine and oxycodone. Differential Diagnosis: - Kidney stone: Sudden onset flank pain, history of stent placement, change in urine odor. Plan: CT scan, Tylenol for pain, IV fluids for hydration. - Urinary tract infection: No burning with urination, history of UTIs. Plan: Monitor symptoms, consider further evaluation if symptoms change. ED Course: - Tylenol administered for pain. - CT scan ordered. - IV fluids administered for hydration. On reassessment, patient notes akathisia following ministration of droperidol, these resolved with administration of 12.5 mg of Benadryl IV. UA results showed no acute infection, labs show chronic kidney disease without significant change from patient's baseline and notably no significant leukocytosis or change in patient's baseline anemia. CT imaging shows no hydronephrosis no obstructing ureteral calculi, however right ureteral stent has appeared to migrate superiorly into the kidney pole. Case was discussed with GURJIT Javed of urology who recommends that the patient be admitted so she can be added onto the surgical schedule for tomorrow for removal. Case was discussed with anesthesia to ensure patient will be a surgical candidate given her recent difficulties with glycemic control, finally case was discussed with the Dr. Rangel (hospitalist) who is agreeable to plan for admission for surgical procedure tomorrow. Final Assessment: Administered Tylenol for pain. Ordered CT scan to evaluate kidney stone. Provided IV fluids for hydration. Clinical Impression: - Kidney stone - Diabetes mellitus Disposition: Admit to [facility] Patient Education: Discussed pain management options. Explained importance of hydration for kidney function. This document was created with assistance from [employer]. The patient consented to its use. HPI: The patient is a 64-year-old female with a history of nephrolithiasis, presenting with acute onset of flank pain at 2130 hours last night, consistent with her typical renal colic. She denies pyrexia, chills, emesis, or dysuria. She has a four-year history of recurrent urinary tract infections. A ureteral stent was placed in April [address] Segovia, which may be contributing to her discomfort, first noted a few weeks ago. The patient has a history of bilateral renal failure and is contraindicated for NSAID use. She has declined opioid analgesics, specifically morphine and oxycodone. Her current medication regimen includes pregabalin and hydrocodone with acetaminophen. Although acetaminophen was previously ineffective, she is willing to attempt its use again. She does not require antiemetic medication. Her blood glucose levels have been elevated, reaching up to 18 mmol/L, but have recently stabilized around 5.6 mmol/L in the mornings over the past two days. Previously, her glucose readings fluctuated between 21.1 mmol/L and 6.7 mmol/L, with recent measurements of 6.7 mmol/L last night and 8.6 mmol/L the other day. ROS: Negative besides as mentioned above Exam: Vital signs: Reviewed. General Appearance: Patient appears in distress due to pain. HEENT: NCAT, EOMI, not icteric. External ears normal. No rhinorrhea. Moist mucous membranes. Neck: Supple, full range of motion, no observable masses, No meningeal sign. Respiratory: No Respiratory distress. No tachypnea. Cardiovascular: RRR, no edema. Gastrointestinal: Soft, nondistended, No rebound tenderness. Back: No midline tenderness to palpation or palpable step-offs of the C/T/L spine. Skin: Warm and dry, no rash. Neurological: Normal Gait, Grossly intact. Psychiatric: Appropriate for situation. Labs: 08/05/25 11:19 Urine - Clean Catch Urine Culture - Preliminary Gram positive lori, mixed Gram negative ramana Laboratory Tests Range/Units 08/05/25 08/05/25 11:05 11:19 WBC (4.4-10.8) 10^3/uL 9.61 RBC (3.93-5.22) 10^6/uL 3.44 L Hgb (11.2-15.7) g/dL 7.2 L Hct (36.0-46.0) % 25.2 L MCV (80-95) fL 73 L MCH (27.0-33.0) pg 20.9 L MCHC (32.0-36.0) % 28.6 L RDW (11.7-14.6) % 17.2 H Plt Count (130-400) 10^3/uL 310 MPV (8.0-11.0) fL 11.3 H Immature Gran % % 0.7 Neutrophils % % 81.5 Lymphocytes % % 10.1 Monocytes % % 6.9 Eosinophils % % 0.4 Basophils % % 0.4 Nucleated RBC % (0.0-0.3) % 0.0 Absolute Neutrophils (1.2-6.7) 10^3/uL 7.83 H Absolute Lymphocytes (1.2-3.4) 10^3/uL 0.97 L Absolute Monocytes (0.1-0.8) 10^3/uL 0.66 Absolute Eosinophils (0.0-0.7) 10^3/uL 0.04 Absolute Basophils (0.0-0.2) 10^3/uL 0.04 RBC Morphology See Below Hypochromasia 1+ Poikilocytosis 1+ Microcytosis 2+ VBG Lactate (<or=2.0) mmol/L 2.4 H* Sodium (136-145) mmol/L 134 L Potassium (3.5-5.1) mmol/L 4.5 Chloride (98-107) mmol/L 98 Carbon Dioxide (21.0-32.0) mmol/L 23.5 Anion Gap (3-11) mmol/L 12.5 H BUN (7-18) mg/dL 18 Creatinine (0.55-1.02) mg/dL 1.6 H Est GFR (CKD-EPI 2020) (mL/min/1.73m2) 35.35 Glucose (74-106) mg/dL 259 H Calcium (8.5-10.1) mg/dL 9.1 Magnesium (1.8-2.4) mg/dL 2.0 Total Bilirubin (0.2-1.0) mg/dL 0.2 AST (15-37) U/L 20 ALT (14-59) U/L 26 Alkaline Phosphatase (46-116) U/L 98 Total Protein (6.4-8.2) g/dL 8.0 Albumin (3.4-5.0) g/dL 3.9 Urine Color (Yellow) Yellow Urine Clarity (Clear) Clear Urine pH (5-8) 7.0 Ur Specific [place] (1.005-1.025) 1.015 Urine Protein (Neg-Trace) mg/dL 30 H Urine Ketones (Negative) mg/dL Negative Urine Blood (Negative) Small H Urine Nitrite (Negative) Negative Urine Bilirubin (Negative) Negative Urine Urobilinogen (Up to 0.2) mg/dL 0.2 Ur Leukocyte Esterase (Negative) Small H Urine RBC (0-2) HPF 3-5 H Urine WBC (0-5) HPF 0-2 Ur Epithelial Cells (Negative) HPF Rare Urine Crystals (Negative) HPF Negative Urine Bacteria (Negative) HPF Negative Urine Casts (Negative) LPF Negative Urine Mucus (Negative) Negative Ur Culture Indicated? No Urine Glucose (Negative) mg/dL 100 H Ethyl Alcohol (<10) mg/dL < 3.0 Radiology: Exam(s) CT ABDOMEN PELVIS W EXAM: CT ABDOMEN PELVIS W CLINICAL HISTORY: right flank pain, hx of renal stones with stent. TECHNIQUE: Imaging Protocol: Axial computed tomography images with coronal and sagittal reformatted images were created and reviewed CONTRAST MATERIAL: Intravenous: Omnipaque-350 75cc Oral: None COMPARISON: CT CT ABDOMEN PELVIS WO from 04/28/2025 FINDINGS: VISUALIZED LUNG BASES: No nodules nor pleural effusions evident. ABDOMEN: There is no ascites. LIVER: There are no focal hepatic lesions evident. No dilated intrahepatic ducts. GALLBLADDER/BILIARY: No obvious gallbladder pathology. CBD is not dilated. PANCREAS: No evidence of pancreatic mass nor dilatation of the pancreatic duct. SPLEEN: Spleen is not enlarged. No obvious intrasplenic lesions. Splenic and portal veins are patent. ADRENALS: There are no significant adrenal masses. KIDNEYS:No significant findings in left kidney. Mild perinephric streaking again noted. There has been interval placement of a right ureteral stent which extends from the renal kidney into the urinary bladder and the right ureter is not dilated. The right-sided hydronephrosis seen on the 04/28/2025 scan has resolved. The upper pigtail of the stent is in the upper pole infundibulum of the kidney and not in the renal pelvis. There is also lesser amount of perinephric streaking on the right side when compared to the prior study. Right ureter is not dilated. There are no obvious radiopaque calculi in the right kidney and renal pelvis nor within the nondistended right ureter and there are no radiopaque calculi seen in the urinary bladder. Bladder cystocele is again noted.. No kidney cysts nor solid renal masses. No evidence of renal abscess. Relatively symmetrical enhancement pattern in the kidneys bilaterally. ABDOMINAL AORTA: Calcified but not enlarged. Also no aneurysms of the iliac arteries. LYMPH NODES:There is no retroperitoneal nor paraaortic adenopathy. ABDOMINAL WALL: No evidence of significant anterior abdominal wall nor inguinal hernia. GI: There is no evidence of bowel obstruction, free air, nor abscess. PELVIS: GI: No evidence of appendicitis.There is abundant fecal material in the colon. No evidence of colonic diverticulosis nor diverticulitis. LYMPH NODES: There is no intrapelvic nor inguinal adenopathy. REPRODUCTIVE: Multiple calcified uterine fibroids are again noted. There is also a calcified left adnexal density again noted which is probably a exophytic calcified uterine fibroid. URINARY BLADDER: Cystocele again noted. Right sided ureteral stent in place. No radiopaque calculi seen in the bladder lumen. No obvious bladder masses. OSSEOUS: No fractures and no significant osseous lesions. IMPRESSION: 1. Compared to the CT scan 04/28/2025 there has been interval placement of right ureteral double pigtail stent which extends from the left side of the urinary bladder lumen up to the left kidney. The superior aspect of the stent is in the upper pole infundibulum/calyx region and not in the the renal pelvis. This may be significant given the symptomatology. The previously present hydronephrosis has mostly resolved. Enhancement pattern of the kidneys is homogeneous without evidence of obvious in homogeneity which would suggest possible pyelo nephritis. There are no radiopaque calculi in either kidney and no cysts nor masses.. There is a bladder cystocele again noted. 2. Multiple calcified uterine fibroids are again noted. No free fluid in the pelvis. Report called by myself to ER 08/05/2025 at 2:50 p.m. RADIATION DOSE DELIVERED: 247.81mGy.cm Total DLP DATA REPOSITORY: All CT scans at this facility are submitted to the National Radiology Data Registry (NRDR) Dose Index Registry (DIR) with the [employer] (ACR). RADIATION OPTIMIZATION: All CT scans at this facility use at least one of these dose optimization techniques: automated exposure control; mA and/or kV adjustment per patient size (includes targeted exams where dose is matched to clinical indication); or iterative reconstruction. Related Data Home Medications ?Medication ?Instructions ?Recorded ?Confirmed omeprazole 40 mg capsule,delayed 40 mg PO DAILY 01/02/23 08/05/25 release rosuvastatin 40 mg tablet 40 mg PO DAILY 01/02/23 08/05/25 insulin degludec 100 unit/mL (3 18 unit subcut DAILY 08/18/24 08/05/25 mL) subcutaneous pen (Tresiba FlexTouch U-100 insulin) multivitamin 1 tab PO DAILY 08/18/24 08/05/25 sitagliptin phosphate 25 mg tablet 25 mg PO DAILY 08/18/24 08/05/25 (Januvia) vitamin B complex 1 cap PO DAILY 08/18/24 08/05/25 levothyroxine 75 mcg tablet 75 mcg PO DAILY 04/29/25 08/05/25 pregabalin 150 mg capsule 150 mg PO BID 04/29/25 08/05/25 insulin lispro 100 unit/mL 8 unit subcut QPM 08/05/25 08/05/25 subcutaneous pen (Humalog KwikPen (U-100) Insulin) Allergies Allergy/AdvReac Type Severity Reaction Status Date / Time acetaminophen (From Percocet) Allergy Unknown Verified 08/05/25 10:52 nystatin Allergy Unknown Verified 08/05/25 10:52 oxycodone (From Percocet) Allergy Unknown Verified 08/05/25 10:52 Sulfa (Sulfonamide Allergy Unknown Verified 08/05/25 10:52 Antibiotics) General Stated Complaint: FlankPain OLE: 3 Course Vital Signs Vital signs: Vital Signs Temperature 37.6 C 08/05/25 10:50 Pulse 100 H 08/05/25 10:50 Respiratory Rate 14 08/05/25 10:50 Blood Pressure 165/92 H 08/05/25 10:50 Pulse Oximetry 100 08/05/25 10:50 Temperature 36.8 C 08/05/25 12:40 Temperature Source Oral 08/05/25 10:59 Pulse 94 H 08/05/25 13:17 Respiratory Rate 16 08/05/25 13:17 Blood Pressure 151/70 H 08/05/25 13:17 Blood Pressure Mean 97 08/05/25 13:17 Blood Pressure Position Sitting 08/05/25 10:59 Pulse Oximetry 92 08/05/25 13:17 Oxygen Delivery Method Room Air 08/05/25 10:59 Oxygen Flow Rate 0 08/05/25 10:59 Pain Level 6 08/05/25 12:40 Lab/Test Results Lab/Test Results: Laboratory Tests Range/Units 08/05/25 08/05/25 11:05 11:19 WBC (4.4-10.8) 10^3/uL 9.61 RBC (3.93-5.22) 10^6/uL 3.44 L Hgb (11.2-15.7) g/dL 7.2 L Hct (36.0-46.0) % 25.2 L MCV (80-95) fL 73 L MCH (27.0-33.0) pg 20.9 L MCHC (32.0-36.0) % 28.6 L RDW (11.7-14.6) % 17.2 H Plt Count (130-400) 10^3/uL 310 MPV (8.0-11.0) fL 11.3 H Immature Gran % % 0.7 Neutrophils % % 81.5 Lymphocytes % % 10.1 Monocytes % % 6.9 Eosinophils % % 0.4 Basophils % % 0.4 Nucleated RBC % (0.0-0.3) % 0.0 Absolute Neutrophils (1.2-6.7) 10^3/uL 7.83 H Absolute Lymphocytes (1.2-3.4) 10^3/uL 0.97 L Absolute Monocytes (0.1-0.8) 10^3/uL 0.66 Absolute Eosinophils (0.0-0.7) 10^3/uL 0.04 Absolute Basophils (0.0-0.2) 10^3/uL 0.04 RBC Morphology See Below Hypochromasia 1+ Poikilocytosis 1+ Microcytosis 2+ VBG Lactate (<or=2.0) mmol/L 2.4 H* Sodium (136-145) mmol/L 134 L Potassium (3.5-5.1) mmol/L 4.5 Chloride (98-107) mmol/L 98 Carbon Dioxide (21.0-32.0) mmol/L 23.5 Anion Gap (3-11) mmol/L 12.5 H BUN (7-18) mg/dL 18 Creatinine (0.55-1.02) mg/dL 1.6 H Est GFR (CKD-EPI 2020) (mL/min/1.73m2) 35.35 Glucose (74-106) mg/dL 259 H Calcium (8.5-10.1) mg/dL 9.1 Total Bilirubin (0.2-1.0) mg/dL 0.2 AST (15-37) U/L 20 ALT (14-59) U/L 26 Alkaline Phosphatase (46-116) U/L 98 Total Protein (6.4-8.2) g/dL 8.0 Albumin (3.4-5.0) g/dL 3.9 Urine Color (Yellow) Yellow Urine Clarity (Clear) Clear Urine pH (5-8) 7.0 Ur Specific [place] (1.005-1.025) 1.015 Urine Protein (Neg-Trace) mg/dL 30 H Urine Ketones (Negative) mg/dL Negative Urine Blood (Negative) Small H Urine Nitrite (Negative) Negative Urine Bilirubin (Negative) Negative Urine Urobilinogen (Up to 0.2) mg/dL 0.2 Ur Leukocyte Esterase (Negative) Small H Urine RBC (0-2) HPF 3-5 H Urine WBC (0-5) HPF 0-2 Ur Epithelial Cells (Negative) HPF Rare Urine Crystals (Negative) HPF Negative Urine Bacteria (Negative) HPF Negative Urine Casts (Negative) LPF Negative Urine Mucus (Negative) Negative Ur Culture Indicated? No Urine Glucose (Negative) mg/dL 100 H PFSH All Active Problems (Updated 08/05/25 @ 20:04 by Joya Ignacio APRN) Hyperlactatemia (Acute) On deep vein thrombosis (DVT) prophylaxis (Acute) Ureteral stent displacement (Acute) Acute pyelonephritis (Acute) Acute UTI (Acute) Calculus, ureteral (Acute) Leukocytosis (Acute) Acute right flank pain (Acute) Osteopenia (Acute) Medical History (Updated 08/05/25 @ 20:04 by Joya Ignacio APRN) Hyperglycemia Chronic kidney disease Hypothyroidism Hypertension Hyperlipidemia Palpitations Tobacco use Hx of chest pain Neuropathy Spinal stenosis of lumbar region Skin lesion Pain in limb History of neck pain Dysuria Anxiety Rupture of appendix Abnormal uterine bleeding Disorder of tendon of biceps Chronic pain syndrome Graves disease Hand paresthesia Intracranial meningioma Myalgia Genital prolapse Pleomorphic adenoma of parotid gland GERD (gastroesophageal reflux disease) Sciatica Abdominal pain in female Neuralgia Hx of visual disturbance Migraine History of depression Alcohol abuse Acute hip pain, bilateral Otalgia of left ear Osteoarthritis 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
[2025-08-05 17:52] VITALS: BP 146/90; PULSE 68; RESP 20; TEMP 36.7; O2SAT 98
[2025-08-05 18:08] VITALS: BP 166/87; PULSE 105; RESP 18; TEMP 36.5; O2SAT 97
[2025-08-05 18:19] LABS: Magnesium 2.0 mg/dL (1.8-2.4)
[2025-08-05] MEDS: traMADol 50 MG TAB PO (18:23)
[2025-08-05] MEDS: cefTRIAXone 1 GM/50 ML BAG IVPB (18:23)
[2025-08-05] MEDS: fentaNYL 100 MCG/2 ML VIAL 50 MCG IVP (18:46)
[2025-08-05] MEDS: Lactated Ringers 1,000 ML 100 ML IV (19:00)
--- NOTE | 2025-08-05 19:06 | W.PC.ACHO ---
Registration Status: ADM IN Primary Language: Preferred Language: ED Information & Data Chief Complaint FlankPain 08/05/25 16:31 Triage Note Patient here with what she 08/05/25 10:50 thinks is a kidney stone, pain started last night in R flank. does have a stent in place on R. Is nauseous, no fever or chills. Medical / Surgical History (Last Updated 01/02/23 @ 10:57 by Anna Gaviria) Hyperglycemia Chronic kidney disease Hypothyroidism Hypertension Hyperlipidemia Palpitations Tobacco use Hx of chest pain Neuropathy Spinal stenosis of lumbar region Skin lesion Pain in limb History of neck pain Dysuria Anxiety Rupture of appendix Abnormal uterine bleeding Disorder of tendon of biceps Chronic pain syndrome Graves disease Hand paresthesia Intracranial meningioma Myalgia Genital prolapse Pleomorphic adenoma of parotid gland GERD (gastroesophageal reflux disease) Sciatica Abdominal pain in female Neuralgia Hx of visual disturbance Migraine History of depression Alcohol abuse Acute hip pain, bilateral Otalgia of left ear Osteoarthritis Other 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 (current) drug therapy Type 2 diabetes mellitus Most Recent Vital Signs Temperature 36.5 C 08/05/25 18:08 Temperature Source Oral 08/05/25 10:59 Pulse 105 H 08/05/25 18:08 Pulse Rhythm Regular 08/05/25 18:08 Respiratory Rate 18 08/05/25 18:08 Respiratory Effort Normal, Non-Labored 08/05/25 18:08 Respiratory Depth Normal 08/05/25 18:08 Respiratory Pattern Normal 08/05/25 18:08 Blood Pressure 166/87 H 08/05/25 18:08 Blood Pressure Mean 97 08/05/25 13:17 Blood Pressure Position Sitting 08/05/25 10:59 Pulse Oximetry 97 08/05/25 18:08 Oxygen Delivery Method Room Air 08/05/25 18:08 Oxygen Flow Rate 0 08/05/25 18:08 Pain Level 10 08/05/25 18:46 Allergies acetaminophen (From Percocet) Allergy (Verified 08/05/25 10:52) Unknown nystatin Allergy (Verified 08/05/25 10:52) Unknown oxycodone (From Percocet) Allergy (Verified 08/05/25 10:52) Unknown Sulfa (Sulfonamide Antibiotics) Allergy (Verified 08/05/25 10:52) Unknown Active Medications Generic Name Dose Route Start Last Admin Trade Name Freq PRN Reason Stop Dose Admin Fentanyl 50 mcg 08/05/25 18:02 08/05/25 18:46 Fentanyl 100 Mcg/2 Ml Vial IVP 50 mcg Q4H PRN PRN Administration Ceftriaxone Sodium/Dextrose 1 gm in 50 mls @ 100 mls/hr 08/05/25 18:02 08/05/25 18:23 Rocephin IVPB 100 mls/hr DAILY CELSO Administration Ringer's Solution 1,000 mls @ 100 mls/hr 08/05/25 18:02 08/05/25 19:00 IV 08/06/25 04:00 100 mls/hr INFUSION CELSO Administration Tramadol HCl 50 mg 08/05/25 18:02 08/05/25 18:23 Tramadol 50 Mg Tab PO 50 mg Q6H PRN PRN Administration IV IV Catheter Type [Right Saline Lock Antecubital] IV Catheter Gauge [Right 20 Antecubital] Diet Orders Category Date Time Status Diabetes Consistent CHO/Heart Healthy [DIET] Nutrition 08/05/25 Dinner Active npo [Nothing Per Oral] [DIET] Nutrition 08/06/25 00:01 Ordered Diagnostics 08/05/25 08/05/25 Range/Units 11:19 11:05 WBC 9.61 (4.4-10.8) 10^3/uL RBC 3.44 L (3.93-5.22) 10^6/uL Hgb 7.2 L (11.2-15.7) g/dL Hct 25.2 L (36.0-46.0) % MCV 73 L (80-95) fL MCH 20.9 L (27.0-33.0) pg MCHC 28.6 L (32.0-36.0) % RDW 17.2 H (11.7-14.6) % Plt Count 310 (130-400) 10^3/uL MPV 11.3 H (8.0-11.0) fL Immature Gran % 0.7 % Neutrophils % 81.5 % Lymphocytes % 10.1 % Monocytes % 6.9 % Eosinophils % 0.4 % Basophils % 0.4 % Nucleated RBC % 0.0 (0.0-0.3) % Absolute Neutrophils 7.83 H (1.2-6.7) 10^3/uL Absolute Lymphocytes 0.97 L (1.2-3.4) 10^3/uL Absolute Monocytes 0.66 (0.1-0.8) 10^3/uL Absolute Eosinophils 0.04 (0.0-0.7) 10^3/uL Absolute Basophils 0.04 (0.0-0.2) 10^3/uL RBC Morphology See Below Hypochromasia 1+ Poikilocytosis 1+ Microcytosis 2+ VBG Lactate 2.4 H* (<or=2.0) mmol/L Sodium 134 L (136-145) mmol/L Potassium 4.5 (3.5-5.1) mmol/L Chloride 98 (98-107) mmol/L Carbon Dioxide 23.5 (21.0-32.0) mmol/L Anion Gap 12.5 H (3-11) mmol/L BUN 18 (7-18) mg/dL Creatinine 1.6 H (0.55-1.02) mg/dL Est GFR (CKD-EPI 2020) 35.35 (mL/min/1.73m2) Glucose 259 H (74-106) mg/dL Calcium 9.1 (8.5-10.1) mg/dL Magnesium 2.0 (1.8-2.4) mg/dL Total Bilirubin 0.2 (0.2-1.0) mg/dL AST 20 (15-37) U/L ALT 26 (14-59) U/L Alkaline Phosphatase 98 (46-116) U/L Total Protein 8.0 (6.4-8.2) g/dL Albumin 3.9 (3.4-5.0) g/dL Urine Color Yellow (Yellow) Urine Clarity Clear (Clear) Urine pH 7.0 (5-8) Ur Specific [place] 1.015 (1.005-1.025) Urine Protein 30 H (Neg-Trace) mg/dL Urine Ketones Negative (Negative) mg/dL Urine Blood Small H (Negative) Urine Nitrite Negative (Negative) Urine Bilirubin Negative (Negative) Urine Urobilinogen 0.2 (Up to 0.2) mg/dL Ur Leukocyte Esterase Small H (Negative) Urine RBC 3-5 H (0-2) HPF Urine WBC 0-2 (0-5) HPF Ur Epithelial Cells Rare (Negative) HPF Urine Crystals Negative (Negative) HPF Urine Bacteria Negative (Negative) HPF Urine Casts Negative (Negative) LPF Urine Mucus Negative (Negative) Ur Culture Indicated? No Urine Glucose 100 H (Negative) mg/dL 08/05/25 11:19 Urine Culture - Pending Urine - Clean Catch Intake and Output - 24 Hour Total 08/05/25 10:37 thru 08/05/25 18:08 Intake Total 1000 Balance 1000 Weight 47.6 kg Intake: IV 1000 Falls Risk Assessment History of Falls No History 08/05/25 18:08 Contributing Factors Incontinence,Medications 08/05/25 18:08 Ambulatory Aids Independent 08/05/25 18:08 Tubes/Lines W/no contributing factors 08/05/25 18:08 Gait Evaluation W/no contributing factors 08/05/25 18:08 Cognition No cognitive impairment 08/05/25 18:08 Fall Total Score 26 08/05/25 18:08 Level of Risk Moderate Risk 08/05/25 18:08 v v v v v v v v v Sending and/or Receiving Nurses: Please use comment section below to note any information pertinent to the patient hand-off not included above. Information / Comments:reported benedryl given after reax to droperidol Report received from: SEBAS Erickson RB, Report called at [phone].
[2025-08-05] MEDS: Rosuvastatin 20 MG TAB 40 MG PO (20:56)
[2025-08-05] MEDS: Nicotine 14 MG/24 HR PATCH TD (20:56)
[2025-08-05] MEDS: Pregabalin 150 MG CAP PO (20:56)
[2025-08-06] VITALS (14 sets, daily range): BP systolic 144–185; BP diastolic 80–97; PULSE 85–94; RESP 14–18; TEMP 36.3–37.1; O2SAT 94–99; BMI 21.9
[2025-08-06] MEDS: traMADol 50 MG TAB PO ×2 (02:44→08:09)
[2025-08-06 06:06] LABS: Abs Immature Grans 0.04 10^3/uL (0.0-0.06); HCT 25.3 % (36.0-46.0); HGB 7.5 g/dL (11.2-15.7); Immature Grans % 0.4 %; MCH 21.6 pg (27.0-33.0); MCHC 29.6 % (32.0-36.0); MCV 73 fL (80-95); MPV 11.4 fL (8.0-11.0); Platelet Count 325 10^3/uL (130-400); RBC 3.47 10^6/uL (3.93-5.22); RDW 17.1 % (11.7-14.6); RDW-SD 44.1 fL; WBC 10.67 10^3/uL (4.4-10.8)
[2025-08-06] MEDS: Levothyroxine 75 MCG TAB PO (06:18)
[2025-08-06 06:26] LABS: Anion Gap 11.0 mmol/L (3-11); BUN 15 mg/dL (7-18); CO2 25.0 mmol/L (21.0-32.0); Calcium 9.2 mg/dL (8.5-10.1); Chloride 103 mmol/L (98-107); Estimated GFR 45.35 (mL/min/1.73m2); Glucose 185 mg/dL (74-106); Potassium 3.7 mmol/L (3.5-5.1); Sodium 139 mmol/L (136-145)
[2025-08-06 07:12] LABS: Hypochromasia 2+; Microcytosis 2+
[2025-08-06] MEDS: Normal Saline Flush 10 ML SYR (08:09)
[2025-08-06] MEDS: cefTRIAXone 1 GM/50 ML BAG IVPB (08:10)
--- NOTE | 2025-08-06 09:12 | UCONE_ITS ---
Date of service: 08/06/25 Time of Service: 10:31 Assessment and Plan Assessment and plan (1) Calculus, ureteral: Status: Acute Assessment and plan: Her stent location is not actually problematic. Given the design of the stents, as long as the upper portion of the stent is somewhere in the collecting system and there is no segmental obstruction of other calyces, there is adequate drainage. I do not believe any of her pain is related to the location of her stent. Nonetheless, she has pain, her stent has been present for close to 3 months and she may still have a ureteral stone present. Her previous surgeries have been delayed because her blood sugars have been poorly controlled. While she is hospitalized and her sugars are well controlled, it makes sense to proceed with cystoscopy, stent removal, ureteroscopy and possible stone treatment. I would expect that she could be discharged with outpatient antibiotics after the procedure. History of Present Illness History of Present Illness Chief Complaint: Right flank pain Narrative: This is a 64-year-old woman who was seen previously when she was hospitalized with right sided pyelonephritis. She was found to have right hydronephrosis related to a right distal ureteral stone. She had a stent placed. The plan was to return to the operating room after she completed her antibiotics so that we could remove her stent and address her stone. She has had her procedure canceled several times having to do with her diabetes. On the first occasion, she did not stop her medications long enough to qualify for a general anesthetic. On the second occasion, her sugars were poorly controlled and we delayed her procedure until her sugars were under better control. She tells me that after moving some heavy equipment yesterday, she developed right flank pain. She was seen in the emergency department. A CT scan was done and there was concern about the location of her ureteral stent. There was also concern for a urinary tract infection. She was admitted for antibiotics and pain control with the expectation that we would perform any surgical procedure today. She no longer has severe flank pain. She is not having any fever or chills PFSH All Active Problems (Updated 08/05/25 @ 20:04 by Joya Ignacio APRN) Hyperlactatemia (Acute) On deep vein thrombosis (DVT) prophylaxis (Acute) Ureteral stent displacement (Acute) Acute pyelonephritis (Acute) Acute UTI (Acute) Calculus, ureteral (Acute) Leukocytosis (Acute) Acute right flank pain (Acute) Osteopenia (Acute) Medical History (Updated 08/05/25 @ 20:04 by Joya Ignacio APRN) Hyperglycemia Chronic kidney disease Hypothyroidism Hypertension Hyperlipidemia Palpitations Tobacco use Hx of chest pain Neuropathy Spinal stenosis of lumbar region Skin lesion Pain in limb History of neck pain Dysuria Anxiety Rupture of appendix Abnormal uterine bleeding Disorder of tendon of biceps Chronic pain syndrome Graves disease Hand paresthesia Intracranial meningioma Myalgia Genital prolapse Pleomorphic adenoma of parotid gland GERD (gastroesophageal reflux disease) Sciatica Abdominal pain in female Neuralgia Hx of visual disturbance Migraine History of depression Alcohol abuse Acute hip pain, bilateral Otalgia of left ear Osteoarthritis Other chcf (current) drug therapy Type 2 diabetes mellitus Family History (Updated 01/02/23 @ 11:00 by Anna Gaviria) Brother Alcohol use disorder Mother Arthritis Myocardial infarction Father Diabetes Hypertension Hypercholesterolemia Cerebrovascular disease Heart disease Sister Diabetes Social History (Updated 01/02/23 @ 11:01 by Anna Gaviria) Smoking/Tobacco Use Status: Current every day Smoking risk assessment performed?: Yes Alcohol Intake: former Drug use: Never Housing: house Exam Narrative Exam Narrative: She looks relatively comfortable Her vital signs are documented elsewhere Her abdomen is soft with no peritoneal signs She is awake and alert I reviewed her CT scan. There is no hydronephrosis with her stent in place. The stent shows the upper end in the upper pole calyx and the distal and in the bladder. We are unable to see her distal ureteral stone on the CT scan Results Last Vital Signs Temp 36.8 C 08/06/25 07:47 Pulse 94 H 08/06/25 07:47 Resp 16 08/06/25 07:47 BP 144/83 H 08/06/25 07:47 Pulse Ox 99 08/06/25 07:47 Labs 08/06/25 05:50 08/06/25 05:50 Labs: Laboratory Results - last 24 hr 08/05/25 08/05/25 08/06/25 11:05 11:19 05:50 WBC 9.61 10.67 RBC 3.44 L 3.47 L Hgb 7.2 L 7.5 L Hct 25.2 L 25.3 L MCV 73 L 73 L MCH 20.9 L 21.6 L MCHC 28.6 L 29.6 L RDW 17.2 H 17.1 H Plt Count 310 325 MPV 11.3 H 11.4 H Immature Gran % 0.7 0.4 Neutrophils % 81.5 84.0 Lymphocytes % 10.1 8.9 Monocytes % 6.9 6.3 Eosinophils % 0.4 0.0 Basophils % 0.4 0.4 Nucleated RBC % 0.0 0.0 Absolute Neutrophils 7.83 H 8.97 H Absolute Lymphocytes 0.97 L 0.95 L Absolute Monocytes 0.66 0.67 Absolute Eosinophils 0.04 0.00 Absolute Basophils 0.04 0.04 RBC Morphology See Below See Below Hypochromasia 1+ 2+ Poikilocytosis 1+ Microcytosis 2+ 2+ VBG Lactate 2.4 H* 1.2 Sodium 134 L 139 Potassium 4.5 3.7 Chloride 98 103 Carbon Dioxide 23.5 25.0 Anion Gap 12.5 H 11.0 BUN 18 15 Creatinine 1.6 H 1.3 H Est GFR (CKD-EPI 2020) 35.35 45.35 Glucose 259 H 185 H Calcium 9.1 9.2 Magnesium 2.0 Total Bilirubin 0.2 AST 20 ALT 26 Alkaline Phosphatase 98 Total Protein 8.0 Albumin 3.9 Urine Color Yellow Urine Clarity Clear Urine pH 7.0 Ur Specific [place] 1.015 Urine Protein 30 H Urine Ketones Negative Urine Blood Small H Urine Nitrite Negative Urine Bilirubin Negative Urine Urobilinogen 0.2 Ur Leukocyte Esterase Small H Urine RBC 3-5 H Urine WBC 0-2 Ur Epithelial Cells Rare Urine Crystals Negative Urine Bacteria Negative Urine Casts Negative Urine Mucus Negative Ur Culture Indicated? No Urine Glucose 100 H Ethyl Alcohol < 3.0
--- NOTE | 2025-08-06 10:00 | ANES.PREOP_ITS ---
General Info Date of Service Date Performed: 08/06/25 Height: 4 ft 10 in Weight: 47.6 kg Body Mass Index (BMI): 21.9 Surgical Procedure: Operation Date: 08/06/25 16:10 Proposed Procedure Side Surgeon p Cystoscopy/Laser/Retrograde/Ureteroscopy/ Removal of Stent Right Sergo Duron MD Meds Allergies and Home Medications Allergies Allergy/AdvReac Type Severity Reaction Status Date / Time acetaminophen (From Percocet) Allergy Unknown Verified 08/05/25 10:52 nystatin Allergy Unknown Verified 08/05/25 10:52 oxycodone (From Percocet) Allergy Unknown Verified 08/05/25 10:52 Sulfa (Sulfonamide Allergy Unknown Verified 08/05/25 10:52 Antibiotics) Home Medication ?Medication ?Instructions ?Recorded omeprazole 40 mg capsule,delayed 40 mg PO DAILY release rosuvastatin 40 mg tablet 40 mg PO DAILY 01/02/23 insulin degludec 100 unit/mL (3 18 unit subcut DAILY 0 08/18/24 mL) subcutaneous pen (Tresiba FlexTouch U-100 insulin) multivitamin 1 tab PO DAILY 08/18/24 sitagliptin phosphate 25 mg tablet 25 mg PO DAILY 07/28 02/16 (Januvia) vitamin B complex 1 cap PO DAILY 08/18/24 levothyroxine 75 mcg tablet 75 mcg PO DAILY 04/29/25 pregabalin 150 mg capsule 150 mg PO BID 04/29/25 insulin lispro 100 unit/mL 8 unit subcut QPM 08/05/25 subcutaneous pen (Humalog KwikPen (U-100) Insulin) Current Visit Medications: Current Medications Generic Name Dose Route Start Last Admin Trade Name Freq PRN Reason Stop Dose Admin Albuterol Sulfate 2.5 mg 08/05/25 18:02 Albuterol 2.5 Mg/3 Ml Inh Soln Vial UPD Q2H PRN PRN Dextrose 0 gm 08/05/25 18:02 Glucose Oral Gel 15 Gm/37.5 Gm Tube PO DIRECTED PRN Dextrose/Water 0 gm 08/05/25 18:02 Dextrose 50%-Water 25 Gm/50 Ml Syr IVP DIRECTED PRN Docusate Sodium 100 mg 08/06/25 08:30 Docusate Sodium 100 Mg Cap PO DAILY CELSO Fentanyl 50 mcg 08/05/25 18:02 08/05/25 18:46 Fentanyl 100 Mcg/2 Ml Vial IVP 50 mcg Q4H PRN PRN Administration Ceftriaxone Sodium/Dextrose 1 gm in 50 mls @ 100 mls/hr 08/05/25 18:02 08/06/25 08:10 Rocephin IVPB 100 mls/hr DAILY CELSO Administration Insulin Aspart 0 units 08/05/25 18:02 08/06/25 08:10 Insulin Aspart 300 Units/3 Ml Pen SC Not Given 0800,1200,1700 [facility] Protocol Levothyroxine Sodium 75 mcg 08/06/25 06:00 08/06/25 06:18 Levothyroxine 75 Mcg Tab PO 75 mcg 0600 [facility] Administration Multivitamins 1 tab 08/06/25 08:30 Multivitamin Tab PO DAILY [facility] Nicotine 14 mg 08/05/25 20:00 08/05/25 20:56 Nicotine 14 Mg/24 Hr Patch TD 14 mg DAILY CELSO Administration Non-Formulary Medication 18 unit 08/06/25 08:30 Insulin Degludec [Tresiba Flextouch U-100] SC DAILY [facility] Omeprazole 40 mg 08/06/25 07:30 08/06/25 08:11 Omeprazole 20 Mg Capcr PO Not Given DAILY@0730 [facility] Polyethylene Glycol 17 gm 08/06/25 08:30 Polyethylene Glycol 3350 17 Gm Packet PO DAILY [facility] Pregabalin 150 mg 08/05/25 20:00 08/05/25 20:56 Pregabalin 150 Mg Cap PO 150 mg BID CELSO Administration Rosuvastatin Calcium 40 mg 08/05/25 20:00 08/05/25 20:56 Rosuvastatin 20 Mg Tab PO 40 mg QPM [facility] Administration Tramadol HCl 50 mg 08/05/25 18:02 08/06/25 08:09 Tramadol 50 Mg Tab PO 50 mg Q6H PRN PRN Administration Vitamin B Complex/Vitamin C 1 tab 08/06/25 08:30 Vitamins B Comp W/C Tab PO DAILY [facility] PFSH Active Problems Active Problems: Problem Status Onset Code Hyperlactatemia Acute E87.20 On deep vein thrombosis (DVT) prophylaxis Acute Z79.899 Ureteral stent displacement Acute T83.122A Acute pyelonephritis Acute N10 Acute UTI Acute N39.0 Calculus, ureteral Acute N20.1 Leukocytosis Acute D72.829 Acute right flank pain Acute R10.9 Osteopenia Acute M85.80 Medical History Medical History (Updated 08/05/25 @ 20:04 by Joya Ignacio APRN) Hyperglycemia Chronic kidney disease Hypothyroidism Hypertension Hyperlipidemia Palpitations Tobacco use Hx of chest pain Neuropathy Spinal stenosis of lumbar region Skin lesion Pain in limb History of neck pain Dysuria Anxiety Rupture of appendix Abnormal uterine bleeding Disorder of tendon of biceps Chronic pain syndrome Graves disease Hand paresthesia Intracranial meningioma Myalgia Genital prolapse Pleomorphic adenoma of parotid gland GERD (gastroesophageal reflux disease) Sciatica Abdominal pain in female Neuralgia Hx of visual disturbance Migraine History of depression Alcohol abuse Acute hip pain, bilateral Otalgia of left ear Osteoarthritis 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 Type 2 diabetes mellitus Tobacco Smoking/Tobacco Use Status: Current every day Alcohol Alcohol Intake: former Substance Use Substance use: Never Vital Signs and Lab Results Vital Signs Most Recent Vital Signs in EMR: Most Recent Vital Signs Temp Pulse Resp BP Pulse Ox 36.8 C 94 H 16 144/83 H 99 08/06/25 07:47 08/06/25 07:47 08/06/25 07:47 08/06/25 07:47 08/06/25 07:47 Point of Care Results Point of Care Results: Finger Stick Blood Glucose 166 08/06/25 07:51 Lab Results 08/06/25 05:50 08/06/25 05:50 Complete Blood Count: 2 WBC, (4.4-10.8) 10.67 10^3/uL Today, 05:50 RBC, (3.93-5.22) 3.47 10^6/uL L Today, 05:50 Hgb, (11.2-15.7) 7.5 g/dL L Today, 05:50 Hct, (36.0-46.0) 25.3 % L Today, 05:50 Plt Count, (130-400) 325 10^3/uL Today, 05:50 VBG Lactate, (<or=2.0) 1.2 mmol/L Today, 05:50 Complete Metabolic Panel: 2 Sodium, (136-145) 139 mmol/L Today, 05:50 Potassium, (3.5-5.1) 3.7 mmol/L Today, 05:50 Chloride, (98-107) 103 mmol/L Today, 05:50 Carbon Dioxide, (21.0-32.0) 25.0 mmol/L Today, 05:50 BUN, (7-18) 15 mg/dL Today, 05:50 Creatinine, (0.55-1.02) 1.3 mg/dL H Today, 05:50 Est GFR (CKD-EPI 2020), (mL/min/1.73m2) 45.35 Today, 05:50 Magnesium, (1.8-2.4) 2.0 mg/dL 08/05/25, 11:05 Calcium, (8.5-10.1) 9.2 mg/dL Today, 05:50 Albumin, (3.4-5.0) 3.9 g/dL 08/05/25, 11:05 Glucose, (74-106) 185 mg/dL H Today, 05:50 Liver Function Panel: 2 ALT, (14-59) 26 U/L 08/05/25, 11:05 AST, (15-37) 20 U/L 08/05/25, 11:05 Toxicology Panel: 2 Ethyl Alcohol, (<10) < 3.0 mg/dL 08/05/25, 11:05 Anesthesia Assessment and Plan Anesthesia History Personal History: No History of Anesthesia Complications Family History: No Family History of Anesthesia Complications Exercise Tolerance Exercise Tolerance: Metabolic Equivalents>4 Cardiac & Pulmonary Exam Cardiac Exam: Normal S1/S2 Heart Sounds Pulmonary Exam: Clear Bilateral Breath Sounds Implantable Cardiac Device Does patient have a Pacemaker or an ICD?: No Airway Exam Known Difficult Airway: No Mallampati Class: 2 Mouth Opening: Normal (> 3cm) Thyromental Distance: Less than 3 cm Neck Range of Motion: Full ROM Neck Circumference: Normal Teeth Condition: Removable Dentures/Plates Upper ASA Classification ASA Score: ASA 3 Emergency Case?: No NPO Status NPO Status: NPO Clears >2 hours, Solids >8 hours Anesthesia Plan Resuscitation Status: DNR Fully Suspended During Perioperative Period Anesthesia Technique: General Anesthesia Airway Planned: Natural Airway Monitors Used: Standard Monitors Preoperative Comments:: GA/natural airway, ETT backup
--- NOTE | 2025-08-06 10:15 | DI.RAD_ITS ---
Exam(s) XR RETROGRADE IN OR EXAM: XR RETROGRADE IN OR CLINICAL HISTORY: displacement of right stent, right flank pain. TECHNIQUE: Fluoroscopy was provided for the referring physician for guidance with performing retrograde procedure. COMPARISON: CT CT ABDOMEN PELVIS W from 08/05/2025 FINDINGS: Please see procedure note for details. Fluoro time: 22.6 seconds RADIATION DOSE DELIVERED: Teresitar=3.3 mGy
[2025-08-06] MEDS: Lactated Ringers 1,000 ML 30 ML IV (11:10)
--- NOTE | 2025-08-06 11:31 | W.PM.PROGNOT ---
Date of Service Date of service: 08/06/25 Time of Service: 11:31 Assessment and Plan Assessment and plan (1) Ureteral stent displacement: Status: Acute Assessment and plan: as per CT imaging report and HPI Urology consultation: Seen by Dr Duron today OR today from stent removal (2) Acute right flank pain: Status: Acute Assessment and plan: D/t above mentioned- no nephrolithiasis seen on CT Ongoing PRN ultram every 6 hours PRN and PRN IV fentanyl for intractable pain not resolved with oral opiods Allergy to acetaminophen and ocycodone - the patient was unable to elaborate Considered IV hydromoprhone but allergy to oxuycodone listed - patient unable to elaborate (3) Hyperlactatemia: Status: Acute Assessment and plan: Resolved Lactate 2.4, 1.2 this AM -most likely not in the setting of sepsis- not meeting criteria on admission Dehydration and medicines considered as alternative etiology Stop IV hydration when able to take oral fluid (4) Acute UTI: Status: Acute Assessment and plan: UA positive for leuk esterase w/o leukocytosis or fever Ongoing Ceftriaxone IV d/t stent and instrumentation on 08/06/25 Urine Cx still pending Labs in AM (5) Type 2 diabetes mellitus: Assessment and plan: Ongoing capillary Glucose AC & HS with SSI Home dose of insulin bolus - converted to Lantus dosing of 15 unit daily hold oral antihyperglycemic agents Labs in AM (6) Tobacco use: Assessment and plan: Ongoing NRT (7) Hyperlipidemia: Assessment and plan: on home dose rosuvastatin (8) Hypertension: Assessment and plan: not on a pharmacological agent - will continue to monitor and treat PRN for HTN urgency /emergency Overall meeting stage one HTN criteria but d/t pain, age>65 and acute hospitalization- further evaluation is warranted in the outpatient setting (9) Hypothyroidism: Assessment and plan: Continue home medicine regimen (10) GERD (gastroesophageal reflux disease): Assessment and plan: Ongoing home dose PPI (11) Neuralgia: Assessment and plan: Ongoing home dose pregabalin (12) On deep vein thrombosis (DVT) prophylaxis: Status: Acute Assessment and plan: Continue TEDs, SCD's Discussed with Dr. Pastrana Exam Narrative Exam Narrative: 64-year-old female in acute distress from pain from abd right flank, restless, alert oriented x 3, no neurological focal deficit, clear breath sounds, S1-S2 regular no murmur, abdomen is round nondistended semi-firm nontender, no guarding and bowel sounds are present, no CVA tenderness, moves all 4 extremities Objective Last Vital Signs Temp 36.8 C 08/06/25 07:47 Pulse 94 H 08/06/25 07:47 Resp 16 08/06/25 07:47 BP 144/83 H 08/06/25 07:47 Pulse Ox 99 08/06/25 07:47 Laboratory Results - last 24 hr 08/05/25 08/05/25 08/06/25 11:05 11:19 05:50 WBC 10.67 RBC 3.47 L Hgb 7.5 L Hct 25.3 L MCV 73 L MCH 21.6 L MCHC 29.6 L RDW 17.1 H Plt Count 325 MPV 11.4 H Immature Gran % 0.4 Neutrophils % 84.0 Lymphocytes % 8.9 Monocytes % 6.3 Eosinophils % 0.0 Basophils % 0.4 Nucleated RBC % 0.0 Absolute Neutrophils 8.97 H Absolute Lymphocytes 0.95 L Absolute Monocytes 0.67 Absolute Eosinophils 0.00 Absolute Basophils 0.04 RBC Morphology See Below Hypochromasia 2+ Microcytosis 2+ VBG Lactate 1.2 Sodium 139 Potassium 3.7 Chloride 103 Carbon Dioxide 25.0 Anion Gap 11.0 BUN 15 Creatinine 1.3 H Est GFR (CKD-EPI 2020) 45.35 Glucose 185 H Calcium 9.2 Magnesium 2.0 Urine RBC 3-5 H Urine WBC 0-2 Ur Epithelial Cells Rare Urine Crystals Negative Urine Bacteria Negative Urine Casts Negative Urine Mucus Negative Ur Culture Indicated? No Ethyl Alcohol < 3.0
[2025-08-06] MEDS: Lidocaine 2% Jelly 11 ML SYR (11:40)
[2025-08-06] MEDS: Omnipaque 350 MG/ML 100 ML BTL IJ (11:41)
--- NOTE | 2025-08-06 12:09 | W.PM.OP ---
Operative Note Operative Note PRE-OP DIAGNOSIS: Right hydronephrosis POST-OP DIAGNOSIS: same PROCEDURE: cystoscopy, right ureteral stent removal, right retrograde pyelogram, right ureteroscopy SURGEON: Sergo Duron ANESTHESIA TYPE: Local By Surgeon and General:No Airway Refer to Anesthesia Record ESTIMATED BLOOD LOSS: 5 PATHOLOGY: none sent COMPLICATIONS: None Patient was transported to: PACU Patient's condition: stable Implants: none Indications: This is a 64-year-old woman who previously presented with right pyelonephritis and right hydronephrosis. Based on her CT scan, there was suspicion for a right distal ureteral stone. She was treated with placement of a ureteral stent along with antibiotics. She presents now for stent removal. We will plan to do a retrograde pyelogram and address any residual stone fragments. Her CT scan from admission did not identify any residual stones Findings: no residual stone Procedure Description: The patient was already on IV antibiotics. She was brought to the operating room on 08/06/2025. After successful induction of general anesthesia without intubation, she was placed in the dorsal lithotomy position. Her genitalia was prepped with Betadine. Her genitalia was draped. 2% Xylocaine jelly was instilled into the urethra. A 22 [place] rigid cystoscope was passed through the urethra into the bladder. The bladder was inspected with a 30 degree lens. The base of the bladder descended significantly consistent with a cystocele. The ureteral orifice ease were identified. A stent could be seen protruding from the right ureteral orifice. The stent was grasped with alligator forceps and brought out to the level of the urethral meatus. The guidewire was then advanced through the lumen of the stent and the stent was removed leaving the wire in place. We passed a 5 [place]grin access catheter over the wire and injected Omnipaque through the access catheter under fluoroscopic guidance. There did appear to be some persistent contrast in the right distal ureter. I did not identify a filling defect however. We then replaced the wire and attempted to pass a semirigid ureteroscope through the urethra and into the right ureteral orifice. Because of the angulation caused by her cystocele, I was not able to pass the semirigid ureteroscope. I then passed a second guidewire and advanced a flexible ureteroscope over one of the wires leaving the other wire in place. I advanced the flexible ureteroscope to the upper ureter and withdrew the scope down the ureter under direct vision. No stones were identified within the ureter. The safety wire and ureteroscope were then removed. The patient tolerated the procedure well with no complications. Date of Procedure: 08/06/25
--- NOTE | 2025-08-06 12:31 | W.ANESPOSTOP ---
Postoperative Evaluation Date, Time and Location Date Performed: 08/06/25 Time Performed: 12:31 Patient Location: Day Surgery Unit Vital Signs Most Recent Imported Vital Signs: Most Recent Vital Signs Temp Pulse Resp BP Pulse Ox 36.3 C L 91 H 18 181/86 H 97 08/06/25 12:20 08/06/25 12:20 08/06/25 12:20 08/06/25 12:20 08/06/25 12:20 Pain Score Most Recent Pain Score: Most Recent Pain Score Pain Level 1 08/06/25 12:25 Assessment Mental Status: Arousable with meaningful communication Airway and Respiratory Function: Patent airway with normal (patient baseline) respiratory exam Cardiovascular Function: Hemodynamically Stable Hydration Status: Adequately Hydrated Nausea & Vomiting: No Nausea or Vomiting Pain: Pain is tolerable per patient Peripheral Nerve Block: Patient did not receive a nerve block
--- NOTE | 2025-08-06 16:42 | CHAPLAIN ---
Rhoda was sitting up on the edge of the bed eating some cottage cheese when I stopped in. She told me about her procedure today having her stent removed and said that she was told that she now has 45 percent use of one of her kidneys. They have both been black and done, before she said. She had been on dialysis, which she can't do again because it affects her blood pressure, so she was very happy to learn that she 45% use now and is hoping to get it back to 50%. She had a friend with her and is hoping to go home later today.
--- NOTE | 2025-08-06 17:03 | DSE_ITS ---
Date of service: 08/06/25 Time of Service: 17:04 DS: Diagnosis Discharge Diagnosis (1) Ureteral stent displacement: Status: Acute (2) Acute right flank pain: Status: Acute (3) Hyperlactatemia: Status: Acute (4) Acute UTI: Status: Acute (5) Type 2 diabetes mellitus: (6) Tobacco use: (7) Hyperlipidemia: (8) Hypertension: (9) Hypothyroidism: (10) GERD (gastroesophageal reflux disease): (11) Neuralgia: (12) On deep vein thrombosis (DVT) prophylaxis: Status: Acute Discharge Plan Disposition Patient Disposition: Home Condition: Improving Discharge Details Reason For Visit: Hyperlactemia,UTI,Intractable Pain,Migrated Ureter Admit Date/Time: 08/05/25 16:54 Admit Provider: Bobby Pastrana Attending Provider: Bobby Pastrana Primary Care Provider: Nellie Lorenzo Hospital Course Hospital Course: This 64-year-old female patient with a past medical history significant for right ureteral stent placement in April 2025 for nephrolithiasis, CKD (previously on CRRT),chronic bacteriuria, current nicotine dependence, DM II, neuropathy and hyperlipidemia presented to the emergency department with acute right-sided flank and abdominal pain. As per CT report: upper pigtail of the stent is in the upper pole infundibulum of the kidney and not in the renal pelvis with ongoing bladder cystocele. Blood work significant for stable anemia with Hgb 7.2, VBG lactate at 2.4. Case with urology team with recommendation for medical admission under the hospitalist service with plan for OR on 08/06/2025. In the ED morphine, acetaminophen , droperidol and diphenhydramine.Urinalysis with leukocyte esterase and ceftriaxone initiated. Stent removal completed on 08/06/[address] Duron with f/u in urology clinic in 6- 8 weeks for renal US and recommendation for oral cefpodoxime at discharge to complete a 5-day course. The patient no longer requires IV fentanyl as pain as totally subsided. Anemia and vital signs are stable. The patient will be discharged home on oral. antibiotics, culture grew Gram negative rods in insignificant amount. Follow-up with PCP within 7 days of discharge, please. Discussed with Dr Pastrana Home Meds and New Rx's Prescriptions: New cefpodoxime 200 mg tablet 200 mg PO BID Qty: 10 0RF Rx Instructions: must administer with a meal/food Continued omeprazole 40 mg capsule,delayed release(DR/EC) 40 mg PO DAILY rosuvastatin 40 mg tablet 40 mg PO DAILY multivitamin Tablet 1 tab PO DAILY Januvia 25 mg tablet 25 mg PO DAILY insulin degludec [Tresiba FlexTouch U-100] 100 unit/mL (3 mL) insulin pen 18 unit subcut DAILY vitamin B complex Capsule 1 cap PO DAILY levothyroxine 75 mcg tablet 75 mcg PO DAILY pregabalin 150 mg capsule 150 mg PO BID insulin lispro [Humalog KwikPen Insulin] 100 unit/mL insulin pen 8 unit SUBCUT QPM Rx Instructions: per sliding scale Discharge Instructions Referrals: Sergo Duron MD [ [facility] STAFF PHYSICIAN, Urology] Referral Note: Dr. Duron: f/u in urology clinic in 6-8 weeks for renal US in department Nellie Lorenzo [Primary Care Provider, Medicine] Referral Note: Follow-up within 7 days Activity:: Activity as Tolerated Equipment/Supplies:: No Equipment Needed Diet:: heart healthy diabetic Discharge Orders Discharge Orders: Discharge Order (Routine); Ordered 08/06/25 Ordered By: Joya Ignacio DS: Summary Time Spent with Patient providing and/or coordinating discharge services: Greater than 30 minutes Status at Discharge Functional status at discharge: independent ambulation Overall status at discharge: patient is progressing back to baseline Mental Status: mental status grossly normal Speech and Movement: speech and movement normal Mood: congruent mood Affect: normal affect Exam Narrative Exam Narrative: 64-year-old female in no acute distress , alert oriented x 4, no neurological focal deficit, clear breath sounds, S1-S2 regular no murmur, abdomen is round nondistended semi-firm nontender, bowel sounds are present, no CVA tenderness, moves all 4 extremities Psych Mental Status: mental status grossly normal Speech and Movement: speech and movement normal Mood: congruent mood Affect: normal affect DS: Data Vitals/I&O Vitals and I&O: Vital Signs Temperature 36.3 C L 08/06/25 12:20 Temperature Source Temporal Artery Scan 08/06/25 07:47 Pulse 89 08/06/25 12:31 Pulse Rhythm Regular 08/05/25 18:08 Pulse 89 08/06/25 12:31 Respiratory Rate 15 08/06/25 12:31 Respiratory Effort Normal, Non-Labored 08/05/25 18:08 Respiratory Depth Normal 08/05/25 18:08 Respiratory Pattern Normal 08/05/25 18:08 Blood Pressure 172/80 H 08/06/25 12:30 Blood Pressure Mean 114 08/06/25 12:30 Blood Pressure Position Sitting 08/05/25 10:59 Pulse Oximetry 95 08/06/25 12:31 Respiratory End-tidal CO2 32 08/06/25 12:31 Oxygen Delivery Method Room Air 08/06/25 12:39 Oxygen Flow Rate 2 08/06/25 12:20 Pain Level 1 08/06/25 12:39 Intake & Output 08/05/25 08/06/25 08/06/25 23:59 11:59 23:59 Intake Total 1000 / 1000 1100 / 1400 300 / 1400 Output Total 2350 / 2350 Balance 1000 / 1000 -1250 / -950 300 / -950 Weight 47.6 kg 47.6 kg Intake: IV 1000 / 1000 1100 / 1400 300 / 1400 Output: Urine 2350 / 2350 Other: Urine Color Yellow Farber Urine Appearance Clear Clear Urine Odor None Normal Comment voiding ind Emesis Description None Data Completed and Pending Labs on day of discharge: Labs from last 24 hours 08/06/25 08/05/25 05:50 11:05 WBC 10.67 RBC 3.47 L Hgb 7.5 L Hct 25.3 L MCV 73 L MCH 21.6 L MCHC 29.6 L RDW 17.1 H Plt Count 325 MPV 11.4 H Immature Gran % 0.4 Neutrophils % 84.0 Lymphocytes % 8.9 Monocytes % 6.3 Eosinophils % 0.0 Basophils % 0.4 Nucleated RBC % 0.0 Absolute Neutrophils 8.97 H Absolute Lymphocytes 0.95 L Absolute Monocytes 0.67 Absolute Eosinophils 0.00 Absolute Basophils 0.04 RBC Morphology See Below Hypochromasia 2+ Microcytosis 2+ VBG Lactate 1.2 Sodium 139 Potassium 3.7 Chloride 103 Carbon Dioxide 25.0 Anion Gap 11.0 BUN 15 Creatinine 1.3 H Est GFR (CKD-EPI 2020) 45.35 Glucose 185 H Calcium 9.2 Magnesium 2.0 Ethyl Alcohol < 3.0 Preliminary micro results at discharge 08/05/25 11:19 Urine - Clean Catch Urine Culture - Preliminary Gram positive lori, mixed Gram negative ramana PFSH All Active Problems (Updated 08/05/25 @ 20:04 by Joya Ignacio APRN) Hyperlactatemia (Acute) On deep vein thrombosis (DVT) prophylaxis (Acute) Ureteral stent displacement (Acute) Acute pyelonephritis (Acute) Acute UTI (Acute) Calculus, ureteral (Acute) Leukocytosis (Acute) Acute right flank pain (Acute) Osteopenia (Acute) Medical History (Updated 08/05/25 @ 20:04 by Joya Ignacio APRN) Hyperglycemia Chronic kidney disease Hypothyroidism Hypertension Hyperlipidemia Palpitations Tobacco use Hx of chest pain Neuropathy Spinal stenosis of lumbar region Skin lesion Pain in limb History of neck pain Dysuria Anxiety Rupture of appendix Abnormal uterine bleeding Disorder of tendon of biceps Chronic pain syndrome Graves disease Hand paresthesia Intracranial meningioma Myalgia Genital prolapse Pleomorphic adenoma of parotid gland GERD (gastroesophageal reflux disease) Sciatica Abdominal pain in female Neuralgia Hx of visual disturbance Migraine History of depression Alcohol abuse Acute hip pain, bilateral Otalgia of left ear Osteoarthritis 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 Type 2 diabetes mellitus Family History (Updated 01/02/23 @ 11:00 by Anna Gaviria) Brother Alcohol use disorder Mother Arthritis Myocardial infarction Father Diabetes Hypertension Hypercholesterolemia Cerebrovascular disease Heart disease Sister Diabetes Social History (Updated 01/02/23 @ 11:01 by Anna Gaviria) Smoking/Tobacco Use Status: Current every day Smoking risk assessment performed?: Yes Alcohol Intake: former Drug use: Never Housing: house Time Spent with Patient Time Spent with Patient: >85 minutes Time was spent: preparing to see the patient(eg.review tests), obtaining and/or reviewing separately otained hiistory, ordering medications,tests, procedures, referring, communicating with other health skin care therapist, indepentently interpreting results, counseling the patient, care coordination and other
--- NOTE | 2025-08-06 18:02 | PDOC.CMPRO ---
Date of service: 08/06/25 Time of Service: 18:02 Care Management Progress Note Progress Note Text Progress Note Text: Rhoda was admitted last night with c/o of right flank pain. She had a right ureteral stent placed in April of this year. It appeared that the stent became misplaced, and that needed to be removed. Rhoda went to the OR earlier today, and did very well. Stent removal was completed and Rhoda was able to discharge home this evening. When [facility] met with Rhoda, she was sitting up on the edge of the bed. Her was with her. She stated that she felt great and was going home. She had eaten, walked and had passed urine. She was discharged home on antibiotics and a plan to f/u with urology in 6-8 weeks. Discharge Potential Discharge Needs: PCP F/U Appt and Surgical F/U Appt (urology, Dr. Duron) Anticipated Barriers to Discharge: None Identified Patient/Family Education Needs: Review discharge instructions, discuss Ask Me Three Transportation: Private vehicle Plan: Rhoda was discharged home this evening with no new services. She will f/u with her PCP and urology and continue per her plan of care. Rhoda transported home with her . Social Determinants of Health Screening Social Determinants of health last assessed in clinic: 08/05/25 Will the Patient Participate in the Screening?: Unable to obtain Do you worry about having a steady place to live?: no Problems where you live: no known problems In the past 12 months, have you had to go without electric, gas, oil or water in your home?: no Has lack of transportation kept you from medical appointments or from doing things needed for daily living?: no Has anyone in your life made you feel unsafe or unsupported?: no How hard is it for you to pay for the very basics like food, housing, medical care, and heating? Would you say it is:: Not hard at all Do you want help finding or keeping work or a job?: I do not need or want help If for any reason you need help with day-to-day activities such as bathing, preparing meals, shopping, managing finances, etc., do you get the help you need?: I don?t need any help How often do you feel lonely or isolated from those around you?: Never Do you speak a language other than [place] at home?: No Does the patient want assistance with any of the above?: No
== END 2025-08-06 17:56 | disposition home or self-care (01) | DRG 699 ==
LOC: ER 11:01 → MS 17:55
PROVIDERS: Urology; Admitting Provider Family Medicine; Emergency Provider General Practice; PCP Legal Medicine; Responsible Provider Nurse Practitioner Acute Care; Visit Provider Family Medicine
PROC: 0TP98DZ Removal of Intraluminal Device from Ureter, Via Natural or Artificial Opening Endoscopic (ICD-10-PCS; CPT 52315; principal; 2025-08-06 16:00)
DX: T83.122A Displacement of indwelling ureteral stent, initial encounter (principal); E87.20 Acidosis, unspecified; E11.9 Type 2 diabetes mellitus without complications; N39.0 Urinary tract infection, site not specified; E78.5 Hyperlipidemia, unspecified; F17.210 Nicotine dependence, cigarettes, uncomplicated; I10 Essential (primary) hypertension; E03.9 Hypothyroidism, unspecified; M85.80 Other specified disorders of bone density and structure, unspecified site; N18.9 Chronic kidney disease, unspecified; I12.9 Hypertensive chronic kidney disease with stage 1 through stage 4 chronic kidney disease, or unspecified chronic kidney disease; E11.65 Type 2 diabetes mellitus with hyperglycemia; F10.10 Alcohol abuse, uncomplicated; G43.909 Migraine, unspecified, not intractable, without status migrainosus; K21.9 Gastro-esophageal reflux disease without esophagitis; G89.4 Chronic pain syndrome; F41.9 Anxiety disorder, unspecified; E05.00 Thyrotoxicosis with diffuse goiter without thyrotoxic crisis or storm; E11.40 Type 2 diabetes mellitus with diabetic neuropathy, unspecified; N81.10 Cystocele, unspecified; Z79.4 Long term (current) use of insulin; Z66 Do not resuscitate; R10.31 Right lower quadrant pain; D64.9 Anemia, unspecified
CPT/HCPCS: 52315; 00123; 36415; 80048; 80053; 96361; 96374; 96375; 99222; 99285; J3490; 74177; 74420; 80320; 81003; 81015; 83605; 83735; 85025; 87086; 99223; 99239; J0696; J1200; J1815; J2003; J2270; J2405; J2704; J3010

== ENCOUNTER → 2025-08-06 09:49 | Outpatient (BNVA) | payer MEDICARE, MEDICAID, SELFPAY | PROVIDERS: PCP Legal Medicine; Referring Provider Legal Medicine; Visit Provider Urology ==

== ENCOUNTER → 2025-10-06 13:44 | Outpatient (BNVA) | payer MEDICARE, MEDICAID, SELFPAY | PROVIDERS: PCP Legal Medicine; Referring Provider Legal Medicine; Visit Provider Urology | DX: N20.1 Calculus of ureter (principal); N18.9 Chronic kidney disease, unspecified; N10 Acute pyelonephritis; N39.0 Urinary tract infection, site not specified | CPT/HCPCS: 76775; 81002 ==

== ENCOUNTER 2025-10-06 14:19 | Outpatient (REF) | payer MEDICARE, MEDICAID, SELFPAY | END 2025-10-06 14:20 | disposition home or self-care (01) | LOC: LBN 14:19 | PROVIDERS: PCP Legal Medicine; Visit Provider Urology | DX: N39.0 Urinary tract infection, site not specified (principal); N20.1 Calculus of ureter | CPT/HCPCS: 87086 ==

== ENCOUNTER 2025-10-08 13:55 | Outpatient (CLI) | payer MEDICARE, MEDICAID, SELFPAY ==
[2025-10-08 14:04] LABS: Abs Immature Grans 0.04 10^3/uL (0.0-0.06); HCT 23.7 % (36.0-46.0); Immature Grans % 0.5 %; MCH 18.2 pg (27.0-33.0); MCHC 27.4 % (32.0-36.0); MCV 66 fL (80-95); MPV 11.1 fL (8.0-11.0); Platelet Count 343 10^3/uL (130-400); RBC 3.57 10^6/uL (3.93-5.22); RDW 17.2 % (11.7-14.6); RDW-SD 41.1 fL; WBC 7.34 10^3/uL (4.4-10.8)
[2025-10-08 14:13] LABS: HGB 6.5 g/dL (11.2-15.7)
[2025-10-08 14:21] LABS: Hypochromasia 1+; Microcytosis 2+; Poikilocytes 1+
[2025-10-08 14:28] LABS: ALT 16 U/L (10-49); AST 22 U/L (<34); Albumin 4.5 g/dL (3.4-5.0); Alkaline Phosphatase 92 U/L (46-116); Anion Gap 10.6 mmol/L (3-11); BUN 14 mg/dL (9-23); Bilirubin, Total 0.20 mg/dL (0.2-1.2); CO2 21.4 mmol/L (20.0-31.0); Calcium 8.7 mg/dL (8.3-10.6); Chloride 104 mmol/L (98-107); Glucose 284 mg/dL (74-106); Potassium 4.8 mmol/L (3.5-5.1); Sodium 136 mmol/L (136-145); Total Protein 7.3 g/dL (5.7-8.2)
== END 2025-10-08 13:56 | disposition home or self-care (01) ==
LOC: LBO 13:56
PROVIDERS: PCP Legal Medicine; Visit Provider Urology
DX: N20.1 Calculus of ureter (principal); N18.9 Chronic kidney disease, unspecified
CPT/HCPCS: 36415; 80053; 85025